=== PATIENT | male | born 1955 | race African-American/Black ===

== ENCOUNTER 2024-06-30 17:50 | Inpatient (IN) | payer MEDICARE, MEDICAID, SELFPAY ==
--- NOTE | ~2024-06-30 | CT_ITS ---
EXAMINATION: CT HEAD WITHOUT CONTRAST CLINICAL INFORMATION: Parkinsonism. COMPARISON: None available. TECHNIQUE: Contiguous axial imaging was performed from the skull base to vertex without intravenous administration of contrast. This CT examination was performed using dose optimization techniques as appropriate, variously including the following: *Automated exposure control *Adjustment of mA and/or kV according to patient size (this includes techniques or standardized protocols for targeted exams where dose is matched to indication/reason for exam; i.e. extremities or head) *Use of iterative reconstruction technique DLP: 765 mGy-cm FINDINGS: There is no evidence of acute intracranial hemorrhage or edematous territorial infarction. Eubanks-white matter differentiation appears preserved. The ventricles and cortical sulci are proportional with mild volume loss. No significant chronic microangiopathy changes. There is no mass effect or midline shift. No acute extra-axial collection. Partially empty sella. No acute soft tissue or osseous abnormalities. 0.5 cm ossified extra-axial lesion seen in relation to the right frontal bone. Mild mucosal thickening involving the right maxillary sinus. The remaining visualized paranasal sinuses and mastoids appear well-aerated. CT/CT head/brain wo IV con IMPRESSION: No acute intracranial pathology. Electronically signed by: Alexis Turk MD 07/23/2024 06:10 PM EDT
[2024-06-30 17:51] VITALS: BP 138/77; PULSE 69; TEMP 36.9; O2SAT 98
--- NOTE | 2024-06-30 18:32 | PC.ADMIT ---
Mr. Farfan arrived via stretcher from [facility] at the doors of at approximately 5:20pm without having stopped at Registration. The were redirected to registration and arrived again, this time at 5:31pm, on a Section 12B. MHC admitting doctor notified.The [employer] ambulance [employer]'s EMT's informed us that Mr. Farfan was not ambulatory and that they had only learned this when they arrived at [facility] to transport him. The EMT's assisted in transferring Mr. Farfan into bed 1 in room 178 where a skin/ safety check was performed. Mostly unremarkable except for several scabbed areas in various state of healing on his right leg, and one noted on his left leg. Admission vitals were as follows: 98.4F-69-138/77, and O2 sat 98%. Per nurse to nurse and other records, Mr. Farfan was reportedly transported by ambulance on 06/15 when his visiting nurse arrived at his home where, he was blasting prayer music and praying to [facility]. The nurse found him, not to be functioning at baseline. He was transported to [facility] where he became violent and at some point (?06/17/24?) was transferred to ICU for physical and chemical restraint. They report he has a history of violence and aggressiveness and has been on 1:1 observation. He was transferred to [facility] which was a med/ surg untit on 06/23 and has been awaiting psych placement since. Diagnostically,he was labeled Altered mental status, confusion and psychosis. Upon arrival, the patient was calm and cooperative but speaks with a distinct stutter and Algerian as his second language with Swahili being his first, and is very difficult to gather much information. He is Adventist and will only eat fish, fruit, vegetables, grains, etc (No chicken, meat or pork). He is non-ambulatory and is incontinent. He was able to communicate that he is not suicidal because he believes and God and God willl take him when it is his time. He has an ex and daughter, but the e-'s phone was out of service and his daughter is not picking up. He has been provided with fluids, a [employer] sandwich, banana and orange which he has not yet finished as, :I eat very slowly. Medically, metabolic encephalopathy due to meds or other; hypothyroid, and GERD. He has not exhibited any aggressive behavior thus far since arriving on the unit. Thr remainder of admission process deferred for next shift.
[2024-06-30 20:00] VITALS: BP 126/68; PULSE 68; RESP 17; TEMP 36.3; O2SAT 98
[2024-06-30] MEDS: Melatonin 3 MG TABLET 6 MG PO (21:06)
[2024-06-30] MEDS: HaloperidoL 5 MG TABLET PO (21:06)
[2024-06-30] MEDS: Benztropine Mesylate 1 MG TABLET PO (21:06)
[2024-06-30] MEDS: Divalproex Sodium 250 MG TABLET.DR PO (21:06)
[2024-06-30] MEDS: traZODone HCL 50 MG TABLET PO (21:14)
[2024-07-01] MEDS: Levothyroxine Sodium 112 MCG TABLET PO (06:12)
[2024-07-01 07:59] VITALS: BP 133/79; PULSE 73; TEMP 36.5; O2SAT 98
[2024-07-01] MEDS: HaloperidoL 5 MG TABLET PO (08:24)
[2024-07-01] MEDS: Benztropine Mesylate 1 MG TABLET PO (08:25)
[2024-07-01] MEDS: Cyanocobalamin (Vitamin B-12) 1,000 MCG TABLET 1000 MCG PO (08:25)
[2024-07-01] MEDS: Famotidine 20 MG TABLET PO (08:25)
[2024-07-01] MEDS: Furosemide 20 MG TABLET PO (08:25)
[2024-07-01] MEDS: Sennosides 8.6 MG TABLET 17.2 MG PO (08:25)
[2024-07-01] MEDS: Divalproex Sodium 250 MG TABLET.DR PO (08:25)
--- NOTE | 2024-07-01 11:31 | P.CONHOSP_ITS ---
History of Present Illness Data of Consult Service Date: 07/01/24 Primary Care Provider: None Physician HPI Reason for consult: Admission H&P Pt is a 68-year-old male with a PMH significant for?hypothyroidism, GERD, and schizoaffective disorder who is admitted to [facility] unit for acute psychosis. Patient initially presented to [facility] ED on 06/15 after being found by his VNA to be altered secondary to likely noncompliance with psychiatric medications. Apparently was blasting prayer music in his home which was cluttered with food all over floor and furniture, and actively delusional claiming he was speaking to [employer]. Hospital course was complicated by transfer to ICU from 06/17-06/23 for combative behavior requiring restraints and Precedex. Was then transferred back to [facility] while awaiting inpatient psych placement. Patient also noted to have abdominal distention without obstruction; initially on full liquid diet starting on 06/24 which was transitioned to low-salt diet on 06/27. Medical consult for admission H&P. ?Patient is seen in his room where he is resting comfortably in bed with covers pulled up covering most of his face. When this interviewer introduces himself, patient states no no no no no no and refuses to be seen, stating he is ?sleeping?. Denies any acute medical complaints. Review of Systems Review of Systems: Denies any acute medical complaints at this time [facility] Medical History (Updated 07/01/24 @ 13:01 by KRYS Hou) GERD (gastroesophageal reflux disease) Hypothyroidism Social History Household Members: None Housing: Apartment Do you presently have visiting nurse or other home services: Yes Patient Tobacco Use Status: Never used Tobacco Use of substances other than those prescribed or required for medical reasons: No Have you been hit, kicked, punched, or otherwise hurt by someone within the past year? If so, by whom?: No Do you feel safe in your current relationship?: No Current Relationship Spiritual Healthcare Practices: hindu Mandaen Healthcare Practices: hindu Cultural Healthcare Practices: no Advance Directives: No Advance Directives Information Provided: No Do you have a plan to hurt others: No Plan Recently lost weight without trying: Yes How much weight loss: Unsure Nutrition Risks: No Nutritional Risk Poor oral hygiene: Yes Meds Allergies Allergy/AdvReac Type Severity Reaction Status Date / Time No Known Allergies Allergy Verified 06/30/24 18:11 Active Medications: Current Medications Acetaminophen (Acetaminophen 325 Mg Tablet) 650 mg PO Q6H PRN PRN Reason: Headache/Pain Mild Scale (1-3) Al Hydroxide/Mg Hydroxide (Magnesium Hydrox/Alum Hydrox 30 Ml Oral.Susp) 30 ml PO Q6H PRN PRN Reason: Heartburn/Nausea Benztropine Mesylate (Benztropine Mesylate 1 Mg Tablet) 1 mg PO BID [facility] Last Admin: 07/01/24 08:25 Dose: 1 mg Cyanocobalamin (Cyanocobalamin (Vitamin B-12) 1,000 Mcg Tablet) 1,000 mcg PO DAILY [facility] Last Admin: 07/01/24 08:25 Dose: 1,000 mcg Divalproex Sodium (Divalproex Sodium 250 Mg Tablet.Dr) 250 mg PO TID [facility] Last Admin: 07/01/24 08:25 Dose: 250 mg Famotidine (Famotidine 20 Mg Tablet) 20 mg PO DAILY [facility] Last Admin: 07/01/24 08:25 Dose: 20 mg Furosemide (Furosemide 20 Mg Tablet) 20 mg PO DAILY [facility] Last Admin: 07/01/24 08:25 Dose: 20 mg Haloperidol (Haloperidol 5 Mg Tablet) 5 mg PO BID [facility] Last Admin: 07/01/24 08:24 Dose: 5 mg Levothyroxine Sodium (Levothyroxine Sodium 112 Mcg Tablet) 112 mcg PO DAILY@0600 [facility] Last Admin: 07/01/24 06:12 Dose: 112 mcg Lorazepam (Lorazepam 1 Mg Tablet) 1 mg PO Q4H PRN PRN Reason: anxiety/restlessness Magnesium Hydroxide (Milk Of Magnesia 30 Ml Oral.Susp) 30 ml PO DAILY PRN PRN Reason: Constipation Melatonin (Melatonin 3 Mg Tablet) 6 mg PO BEDTIME [facility] Last Admin: 06/30/24 21:06 Dose: 6 mg Olanzapine (Olanzapine Odt 10 Mg Tab.Rapdis) 10 mg TRANSLINGU BID PRN PRN Reason: Psychosis Senna (Sennosides 8.6 Mg Tablet) 17.2 mg PO DAILY [facility] Last Admin: 07/01/24 08:25 Dose: 17.2 mg Trazodone HCl (Trazodone Hcl 50 Mg Tablet) 50 mg PO BEDTIME MRX1 PRN PRN Reason: Insomnia Last Admin: 06/30/24 21:14 Dose: 50 mg Home Medications ?Medication ?Instructions ?Recorded ?Confirmed ?Last Taken ?Type benztropine 1 mg PO 2XD 06/30/24 06/30/24 Unknown History cyanocobalamin (vitamin B-12) 1,000 mcg PO 1XD 06/30/24 06/30/24 Unknown History divalproex 250 mg tablet,delayed 250 mg PO 3XD 06/30/24 06/30/24 Unknown History release famotidine 20 mg PO 1XD 06/30/24 06/30/24 Unknown History furosemide 20 mg PO 1XD 06/30/24 06/30/24 Unknown History levothyroxine 112 mcg PO DAILY@0630 06/30/24 06/30/24 Unknown History melatonin 6 mg PO BEDTIME 06/30/24 06/30/24 Unknown History quetiapine 400 mg PO BEDTIME 06/30/24 06/30/24 Unknown History risperidone 0.5 mg PO BEDTIME 06/30/24 06/30/24 Unknown History senna 17.2 mg PO 1XD 06/30/24 06/30/24 Unknown History Physical Exam Vital Signs and Narrative: Vital Signs: Last Vital Signs Temp 97.7 F 07/01/24 07:59 Pulse 73 07/01/24 07:59 Resp 17 06/30/24 20:00 BP 133/79 07/01/24 07:59 Pulse Ox 98 07/01/24 07:59 O2 Del Method Room Air 07/01/24 07:59 Patient declines physical examination Patient noted to speak with stutter and have at least right upper extremity tremor Assessment and Plan (1) Medical clearance for psychiatric admission: Status: Acute Plan Pt is a 68-year-old male with a PMH significant for?hypothyroidism, GERD, and schizoaffective disorder who is admitted to [facility] unit for acute psychosis. Patient initially presented to [facility] ED on 06/15 after being found by his VNA to be altered secondary to likely noncompliance with psychiatric medications. Apparently was blasting prayer music in his home which was cluttered with food all over floor and furniture, and actively delusional claiming he was speaking to [place]. Hospital course was complicated by transfer to ICU from 06/17-06/23 for combative behavior requiring restraints and Precedex. Was then transferred back to [facility] while awaiting inpatient psych placement. Medical consult for admission H&P. Mood disorder Plan as per Psychiatry Hypothyroidism Continue levothyroxine GERD Continue famotidine Thank you for allowing us to participate in the care of this patient. Signing off at this time. Please re-consult if any acute complaints or issues arise.
--- NOTE | 2024-07-01 12:16 | P.HPPS_ITS ---
HPI Date of Service: 07/01/24 Chief Complaint: Schizoaffective disorder, unspecified Sources of Information: patient interviewed, chart reviewed and crisis/core team assessment reviewed HPI Subjective Notes: [place] Warning and Section 12B Narrative: The patient is a 68-year-old [place] male, , father of adult children, with a past history of schizoaffective disorder bipolar type who was initially brought to another hospital out of our catchment area since he was found in his apartment unable to take care of himself, extremely filthy with loud music, disheveled and disorganized. She was rushed to the emergency room and transf erred to a regular unit since he was agitated and needed soft restraints. He was seen by Psychiatry over there started on Haldol and transferring to this facility after [facility] got involved and accelerate his admission. On admission the patient was pleasant, cooperative, internally preoccupied, perseverative with speech impairment but he was able to make his needs known. He reported that he is mostly him and he does not drink or smoke or use any drugs, he was withdrawn but easily redirectable. The patient was unable to provide any further information he stated that he is not hearing voices at this moment but he looked internally preoccupied. We continue with his Haldol as prescribed and will try to gather more collateral information. At the moment of the admission we were unable to get more collateral information, we do not know prior trials of medications but he was able to state that he was admitted into the hospital for psychiatric reasons before. He remains on one-to-one observation Past Psychiatric History: The patient is a very poor historian but apparently he has an extensive psychiatric history of several prior admissions into the [facility] and [facility] involvement. So far we do not have guardians order or treatment over objection in the community. Medical Evaluation Reviewed: Yes [facility] Medical History GERD (gastroesophageal reflux disease) Hypothyroidism Family History: Denies Social History: Unknown, the patient was born and raised in [place] [facility] [place], he is fluent in Albanian. He was but and he has adult children that are not involved Substance History: Denies Trauma History: Unknown Diagnostics Vital Signs (24Hr): Vital Signs - 24 hr 06/30/24 17:51 06/30/24 20:00 07/01/24 07:59 Temperature 98.4 F 97.4 F 97.7 F Pulse Rate 69 68 73 Respiratory Rate 17 Blood Pressure 138/77 126/68 133/79 Pulse Oximetry 98 98 98 Oxygen Delivery Method Room Air Room Air Room Air Meds/Allergies Meds Home Medications ?Medication ?Instructions ?Recorded ?Confirmed ?Type benztropine 1 mg PO 2XD 06/30/24 06/30/24 History cyanocobalamin (vitamin B-12) 1,000 mcg PO 1XD 06/30/24 06/30/24 History divalproex 250 mg tablet,delayed 250 mg PO 3XD 06/30/24 06/30/24 History release famotidine 20 mg PO 1XD 06/30/24 06/30/24 History furosemide 20 mg PO 1XD 06/30/24 06/30/24 History levothyroxine 112 mcg PO DAILY@0630 06/30/24 06/30/24 History melatonin 6 mg PO BEDTIME 06/30/24 06/30/24 History quetiapine 400 mg PO BEDTIME 06/30/24 06/30/24 History risperidone 0.5 mg PO BEDTIME 06/30/24 06/30/24 History senna 17.2 mg PO 1XD 06/30/24 06/30/24 History Allergies Allergies Allergy/AdvReac Type Severity Reaction Status Date / Time No Known Allergies Allergy Verified 06/30/24 18:11 Mental Status Exam Mental Status Exam Patient Appearance: Appropriate Patient Orientation: Person and Situation Level of Consciousness: Awake and Appropriate Patient Behavior: Guarded and Passive Mood Description: Withdrawn Affect Description: Constricted Patient Cognition Impaired: Yes Ability to Follow Directions: Good Speech Pattern: Clear Hallucinations: Auditory Delusions: Paranoid Ideation and Ideas of Reference Thought Process: Distracted and Slowed Thinking Thought Content: positive for [place] and positive for Poverty of Content Judgement: Poor Assessment & Plan Assessment & Plan (1) Schizoaffective disorder: Status: Acute Code(s): F25.9 - Schizoaffective disorder, unspecified Plan The patient is an elderly [place]ud[place] male with a past history of schizoaffective disorder bipolar type who was brought from the community due to exacerbation of psychosis and inability to take care of himself. Apparently he was living in a filthy apartment with loud music very disruptive. He was initially admitted to Medicine and later on transferring to this facility for psychiatric stabilization. Plan 1. Gather collateral information. 2. Continue with Haldol as prescribed. 3. Continue with medical workout. 4. Reassessment with results. 5. On one-to-one observation Patient educated on: diagnosis Reason for continued inpatient stay Substantial Risk for: inability to function, rapid decompensation and med/psych decompensation Statement Statement: I have reviewed the history and physical and performed a pertinent examination on my patient. No changes have occurred unless specified. If the History and Physical was not performed prior to admission, the Hospitalist's service will be consulted for completing the admission physical. Time Spent With Patient Time: Total time managing care of this patient today __45__ minutes.
--- NOTE | 2024-07-01 15:02 | MHC.CLN ---
NUTRITION ALERTED BY NURSING OF [employer] PREFERENCES. VISITED WITH PATIENT IN HIS ROOM WITH [facility]. 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 ASKED SPECIFICALLY ABOUT FOOD CERTIFIED HALAL. DID NOT INDICATE THAT PREFERENCE. DOES NOT EAT CHICKEN, MEAT, PORK. STATED THAT DOES NOT WANT FISH. [facility]BARO WILL TRY TO COMPLETE DINING MENU WITH PATIENT.
[2024-07-01 19:38] VITALS: BP 126/67; PULSE 64; RESP 18; TEMP 36.4; O2SAT 98
[2024-07-02] MEDS: traZODone HCL 50 MG TABLET PO (02:46)
[2024-07-02] MEDS: Levothyroxine Sodium 112 MCG TABLET PO (06:06)
[2024-07-02 08:00] VITALS: BP 140/71; PULSE 69; TEMP 37.6; O2SAT 98
[2024-07-02] MEDS: Furosemide 20 MG TABLET PO (08:27)
[2024-07-02] MEDS: Sennosides 8.6 MG TABLET 17.2 MG PO (08:27)
[2024-07-02] MEDS: Famotidine 20 MG TABLET PO (08:28)
[2024-07-02] MEDS: Divalproex Sodium 250 MG TABLET.DR PO ×3 (08:28→20:13)
[2024-07-02] MEDS: Benztropine Mesylate 1 MG TABLET PO ×2 (08:28→20:13)
[2024-07-02] MEDS: Cyanocobalamin (Vitamin B-12) 1,000 MCG TABLET 1000 MCG PO (08:28)
[2024-07-02] MEDS: HaloperidoL 5 MG TABLET PO ×2 (08:28→20:13)
--- NOTE | 2024-07-02 15:29 | HO.PSYCHPN ---
Subjective Subjective Date of Service: 07/02/24 Reason For Visit: Schizoaffective disorder, unspecified Subjective Notes: Section 12B Interim History: The nursing staff reported the patient had been compliant with treatment, he stayed in his room and he was withdrawn he ate 100% of his breakfast. He had been easily redirectable but a little difficult to understand due to his speech impairment. He refused medications at night. On interview the patient reports that he is feeling much better that he went out to have fresh air. We are going to try to gather more collateral information since the patient is a very poor historian. Mental Status Exam Mental Status Exam Patient Appearance: Appropriate Patient Orientation: Person and Situation Level of Consciousness: Awake and Appropriate Patient Behavior: Guarded and Passive Mood Description: Withdrawn Affect Description: Constricted Patient Cognition Impaired: Yes Ability to Follow Directions: Good Speech Pattern: Clear Hallucinations: None Delusions: Ideas of Reference Thought Process: Distracted and Slowed Thinking Thought Content: positive for [place] and positive for Poverty of Content Judgement: Poor Diagnostics Vital Signs (24Hr): Vital Signs - 24 hr 07/01/24 19:38 07/02/24 08:00 Temperature 97.6 F 99.7 F Pulse Rate 64 69 Respiratory Rate 18 Blood Pressure 126/67 140/71 H Pulse Oximetry 98 98 Oxygen Delivery Method Room Air Room Air Medications Medications Current Medications Acetaminophen (Acetaminophen 325 Mg Tablet) 650 mg PO Q6H PRN PRN Reason: Headache/Pain Mild Scale (1-3) Al Hydroxide/Mg Hydroxide (Magnesium Hydrox/Alum Hydrox 30 Ml Oral.Susp) 30 ml PO Q6H PRN PRN Reason: Heartburn/Nausea Benztropine Mesylate (Benztropine Mesylate 1 Mg Tablet) 1 mg PO BID [facility] Last Admin: 07/02/24 08:28 Dose: 1 mg Cyanocobalamin (Cyanocobalamin (Vitamin B-12) 1,000 Mcg Tablet) 1,000 mcg PO DAILY [facility] Last Admin: 07/02/24 08:28 Dose: 1,000 mcg Divalproex Sodium (Divalproex Sodium 250 Mg Tablet.) 250 mg PO TID [facility] Last Admin: 07/02/24 08:28 Dose: 250 mg Famotidine (Famotidine 20 Mg Tablet) 20 mg PO DAILY [facility] Last Admin: 07/02/24 08:28 Dose: 20 mg Furosemide (Furosemide 20 Mg Tablet) 20 mg PO DAILY [facility] Last Admin: 07/02/24 08:27 Dose: 20 mg Haloperidol (Haloperidol 5 Mg Tablet) 5 mg PO BID [facility] Last Admin: 07/02/24 08:28 Dose: 5 mg Levothyroxine Sodium (Levothyroxine Sodium 112 Mcg Tablet) 112 mcg PO DAILY@0600 [facility] Last Admin: 07/02/24 06:06 Dose: 112 mcg Lorazepam (Lorazepam 1 Mg Tablet) 1 mg PO Q4H PRN PRN Reason: anxiety/restlessness Magnesium Hydroxide (Milk Of Magnesia 30 Ml Oral.Susp) 30 ml PO DAILY PRN PRN Reason: Constipation Melatonin (Melatonin 3 Mg Tablet) 6 mg PO BEDTIME [facility] Last Admin: 07/01/24 20:19 Dose: Not Given Olanzapine (Olanzapine Odt 10 Mg Tab.Rapdis) 10 mg TRANSLINGU BID PRN PRN Reason: Psychosis Senna (Sennosides 8.6 Mg Tablet) 17.2 mg PO DAILY [facility] Last Admin: 07/02/24 08:27 Dose: 17.2 mg Trazodone HCl (Trazodone Hcl 50 Mg Tablet) 50 mg PO BEDTIME MRX1 PRN PRN Reason: Insomnia Last Admin: 07/02/24 02:46 Dose: 50 mg Allergies Allergies Allergy/AdvReac Type Severity Reaction Status Date / Time No Known Allergies Allergy Verified 06/30/24 18:11 Assessment & Plan Assessment & Plan (1) Schizoaffective disorder: Status: Acute Code(s): F25.9 - Schizoaffective disorder, unspecified Plan The patient is an elderly Macanese male with a past history of schizoaffective disorder bipolar type who was brought from the community due to exacerbation of psychosis and inability to take care of himself. Apparently he was living in a filthy apartment with loud music very disruptive. He was initially admitted to Medicine and later on transferring to this facility for psychiatric stabilization. Plan 1. Gather collateral information. 2. Continue with Haldol as prescribed. 3. Continue with medical workout. 4. Reassessment with results. 5. On one-to-one observation. On July 02 we change the observation to 5 minute checks. 6. Physical therapy assessment for gait. Reason for continued inpatient stay Substantial Risk for: inability to function, rapid decompensation and med/psych decompensation Time Spent With Patient Time: Total time managing care of this patient today __20__ minutes.
[2024-07-02 20:00] VITALS: BP 141/90; PULSE 89; RESP 18; TEMP 36.7; O2SAT 98
[2024-07-02] MEDS: Melatonin 3 MG TABLET 6 MG PO (20:13)
[2024-07-03] MEDS: Levothyroxine Sodium 112 MCG TABLET PO (06:11)
[2024-07-03 08:00] VITALS: BP 150/91; PULSE 100; RESP 18; TEMP 36.4; O2SAT 99
[2024-07-03] MEDS: Sennosides 8.6 MG TABLET 17.2 MG PO (08:29)
[2024-07-03] MEDS: Divalproex Sodium 250 MG TABLET.DR PO ×3 (08:29→20:30)
[2024-07-03] MEDS: HaloperidoL 5 MG TABLET PO ×2 (08:29→20:30)
[2024-07-03 08:30] VITALS: BP 150/91
[2024-07-03] MEDS: Furosemide 20 MG TABLET PO (08:30)
[2024-07-03] MEDS: Famotidine 20 MG TABLET PO (08:30)
[2024-07-03] MEDS: Cyanocobalamin (Vitamin B-12) 1,000 MCG TABLET 1000 MCG PO (08:30)
[2024-07-03] MEDS: Benztropine Mesylate 1 MG TABLET PO ×2 (08:30→20:30)
--- NOTE | 2024-07-03 09:58 | HO.PSYCHPN ---
Subjective Subjective Date of Service: 07/03/24 Reason For Visit: Schizoaffective disorder, unspecified Subjective Notes: Conditional Voluntary Interim History: The nursing staff reported the patient had been pleasant, relaxed he walked with assistance he was seen by PT. He was cheerful no issues. She slept poorly. The occupational therapist agreed with the physical therapist about short-term rehab and he was in agreement with that. Today sign CV and he is willing to go to short acute rehab. He denies auditory hallucinations or paranoia Mental Status Exam Mental Status Exam Patient Appearance: Well Grooomed and Appropriate Patient Orientation: Person and Situation Level of Consciousness: Awake and Appropriate Patient Behavior: Guarded and Passive Mood Description: Withdrawn Affect Description: Constricted Patient Cognition Impaired: Yes Ability to Follow Directions: Good Speech Pattern: Clear Hallucinations: None Delusions: Not Present Thought Process: Distracted and Slowed Thinking Thought Content: positive for [place] and positive for Poverty of Content Judgement: Fair Diagnostics Vital Signs (24Hr): Vital Signs - 24 hr 07/02/24 20:00 07/03/24 08:00 07/03/24 08:30 Temperature 98.0 F 97.6 F Pulse Rate 89 100 Respiratory Rate 18 18 Blood Pressure 141/90 H 150/91 H 150/91 H Pulse Oximetry 98 99 Oxygen Delivery Method Room Air Room Air Medications Medications Current Medications Acetaminophen (Acetaminophen 325 Mg Tablet) 650 mg PO Q6H PRN PRN Reason: Headache/Pain Mild Scale (1-3) Al Hydroxide/Mg Hydroxide (Magnesium Hydrox/Alum Hydrox 30 Ml Oral.Susp) 30 ml PO Q6H PRN PRN Reason: Heartburn/Nausea Benztropine Mesylate (Benztropine Mesylate 1 Mg Tablet) 1 mg PO BID [facility] Last Admin: 07/03/24 08:30 Dose: 1 mg Cyanocobalamin (Cyanocobalamin (Vitamin B-12) 1,000 Mcg Tablet) 1,000 mcg PO DAILY [facility] Last Admin: 07/03/24 08:30 Dose: 1,000 mcg Divalproex Sodium (Divalproex Sodium 250 Mg Tablet.) 250 mg PO TID [facility] Last Admin: 07/03/24 08:29 Dose: 250 mg Famotidine (Famotidine 20 Mg Tablet) 20 mg PO DAILY [facility] Last Admin: 07/03/24 08:30 Dose: 20 mg Furosemide (Furosemide 20 Mg Tablet) 20 mg PO DAILY [facility] Last Admin: 07/03/24 08:30 Dose: 20 mg Haloperidol (Haloperidol 5 Mg Tablet) 5 mg PO BID [facility] Last Admin: 07/03/24 08:29 Dose: 5 mg Levothyroxine Sodium (Levothyroxine Sodium 112 Mcg Tablet) 112 mcg PO DAILY@0600 [facility] Last Admin: 07/03/24 06:11 Dose: 112 mcg Lorazepam (Lorazepam 1 Mg Tablet) 1 mg PO Q4H PRN PRN Reason: anxiety/restlessness Magnesium Hydroxide (Milk Of Magnesia 30 Ml Oral.Susp) 30 ml PO DAILY PRN PRN Reason: Constipation Melatonin (Melatonin 3 Mg Tablet) 6 mg PO BEDTIME [facility] Last Admin: 07/02/24 20:13 Dose: 6 mg Olanzapine (Olanzapine Odt 10 Mg Tab.Rapdis) 10 mg TRANSLINGU BID PRN PRN Reason: Psychosis Senna (Sennosides 8.6 Mg Tablet) 17.2 mg PO DAILY [facility] Last Admin: 07/03/24 08:29 Dose: 17.2 mg Trazodone HCl (Trazodone Hcl 50 Mg Tablet) 50 mg PO BEDTIME MRX1 PRN PRN Reason: Insomnia Last Admin: 07/02/24 02:46 Dose: 50 mg Allergies Allergies Allergy/AdvReac Type Severity Reaction Status Date / Time No Known Allergies Allergy Verified 06/30/24 18:11 Assessment & Plan Assessment & Plan (1) Schizoaffective disorder: Status: Acute Code(s): F25.9 - Schizoaffective disorder, unspecified Plan The patient is an elderly Bangladeshi male with a past history of schizoaffective disorder bipolar type who was brought from the community due to exacerbation of psychosis and inability to take care of himself. Apparently he was living in a filthy apartment with loud music very disruptive. He was initially admitted to Medicine and later on transferring to this facility for psychiatric stabilization. Plan 1. Gather collateral information. 2. Continue with Haldol as prescribed. 3. Continue with medical workout. 4. Reassessment with results. 5. On one-to-one observation. On July 02 we change the observation to 5 minute checks. 6. Physical therapy assessment for gait. PT suggested subacute rehab as discharge planning. Reason for continued inpatient stay Substantial Risk for: inability to function, rapid decompensation and med/psych decompensation Time Spent With Patient Time: Total time managing care of this patient today __20__ minutes.
[2024-07-03 14:46] VITALS: BP 150/91
[2024-07-03 20:00] VITALS: BP 132/80; PULSE 95; RESP 18; TEMP 36.6; O2SAT 98
[2024-07-03] MEDS: Melatonin 3 MG TABLET 6 MG PO (20:30)
[2024-07-03] MEDS: traZODone HCL 50 MG TABLET PO (20:30)
[2024-07-04] MEDS: Levothyroxine Sodium 112 MCG TABLET PO (06:02)
[2024-07-04 08:00] VITALS: BP 124/73; PULSE 88; RESP 18; TEMP 36.5; O2SAT 98
[2024-07-04 08:39] VITALS: BP 124/73
[2024-07-04] MEDS: Furosemide 20 MG TABLET PO (08:39)
[2024-07-04] MEDS: Benztropine Mesylate 1 MG TABLET PO ×2 (08:40→21:34)
[2024-07-04] MEDS: Cyanocobalamin (Vitamin B-12) 1,000 MCG TABLET 1000 MCG PO (08:40)
[2024-07-04] MEDS: Famotidine 20 MG TABLET PO (08:40)
[2024-07-04] MEDS: Divalproex Sodium 250 MG TABLET.DR PO ×3 (08:40→21:34)
[2024-07-04] MEDS: HaloperidoL 5 MG TABLET PO ×2 (08:40→21:34)
[2024-07-04] MEDS: Sennosides 8.6 MG TABLET 17.2 MG PO (08:40)
--- NOTE | 2024-07-04 14:07 | HO.PSYCHPN ---
Subjective Subjective Date of Service: 07/04/24 Reason For Visit: Schizoaffective disorder, unspecified Subjective Notes: Conditional Voluntary Medical Problems Affecting Mental Status: Yes (tremor? med s/e , deconditioned) Interim History: 68 yo reports he is from [facility]- tells me came here in 2005 and has been hospitalized numerous times- for psychiatric, also in [facility] he had some as well - Most recent was BI before here- where they reportedly kept him in bed or 2 weeks- hoping to get some PT- Denies current si -prior to admission was singingloudly and delusional - better control this time- says he was screaming at 3 am when he vomited- Discussed pt's stutter and tremor with him-he thinks might be ed related - Medication Compliance: Yes Side effects from medications: Yes (? tremor/TD) Attending Groups: No Review of Systems unclear- anything acute other than deconditioned Medical Review of Systems: unchanged Mental Status Exam Mental Status Exam Patient Appearance: Disheveled Patient Orientation: Person, Place and Situation Level of Consciousness: Awake Patient Behavior: Dependent, Cooperative and Good Eye Contact Affect Description: Blunted Ability to Follow Directions: Fair Speech Pattern: Stuttering Thought Process: Distracted and Slowed Thinking Thought Content: positive for Disorganized (? hard to tell) Depressive Symptoms: Insomnia and Muscle Tension Judgement: Poor Diagnostics Vital Signs (24Hr): Vital Signs - 24 hr 07/03/24 14:46 07/03/24 20:00 07/04/24 08:00 Temperature 97.9 F 97.7 F Pulse Rate 95 88 Respiratory Rate 18 18 Blood Pressure 150/91 H 132/80 124/73 Pulse Oximetry 98 98 Oxygen Delivery Method Room Air Room Air 07/04/24 08:39 Temperature Pulse Rate Respiratory Rate Blood Pressure 124/73 Pulse Oximetry Oxygen Delivery Method Medications Medications Current Medications Acetaminophen (Acetaminophen 325 Mg Tablet) 650 mg PO Q6H PRN PRN Reason: Headache/Pain Mild Scale (1-3) Al Hydroxide/Mg Hydroxide (Magnesium Hydrox/Alum Hydrox 30 Ml Oral.Susp) 30 ml PO Q6H PRN PRN Reason: Heartburn/Nausea Benztropine Mesylate (Benztropine Mesylate 1 Mg Tablet) 1 mg PO BID [facility] Last Admin: 07/04/24 08:40 Dose: 1 mg Cyanocobalamin (Cyanocobalamin (Vitamin B-12) 1,000 Mcg Tablet) 1,000 mcg PO DAILY [facility] Last Admin: 07/04/24 08:40 Dose: 1,000 mcg Divalproex Sodium (Divalproex Sodium 250 Mg Tablet.Dr) 250 mg PO TID [facility] Last Admin: 07/04/24 08:40 Dose: 250 mg Famotidine (Famotidine 20 Mg Tablet) 20 mg PO DAILY [facility] Last Admin: 07/04/24 08:40 Dose: 20 mg Furosemide (Furosemide 20 Mg Tablet) 20 mg PO DAILY [facility] Last Admin: 07/04/24 08:39 Dose: 20 mg Haloperidol (Haloperidol 5 Mg Tablet) 5 mg PO BID [facility] Last Admin: 07/04/24 08:40 Dose: 5 mg Levothyroxine Sodium (Levothyroxine Sodium 112 Mcg Tablet) 112 mcg PO DAILY@0600 [facility] Last Admin: 07/04/24 06:02 Dose: 112 mcg Lorazepam (Lorazepam 1 Mg Tablet) 1 mg PO Q4H PRN PRN Reason: anxiety/restlessness Magnesium Hydroxide (Milk Of Magnesia 30 Ml Oral.Susp) 30 ml PO DAILY PRN PRN Reason: Constipation Melatonin (Melatonin 3 Mg Tablet) 6 mg PO BEDTIME [facility] Last Admin: 07/03/24 20:30 Dose: 6 mg Olanzapine (Olanzapine Odt 10 Mg Tab.Rapdis) 10 mg TRANSLINGU BID PRN PRN Reason: Psychosis Senna (Sennosides 8.6 Mg Tablet) 17.2 mg PO DAILY [facility] Last Admin: 07/04/24 08:40 Dose: 17.2 mg Trazodone HCl (Trazodone Hcl 50 Mg Tablet) 50 mg PO BEDTIME MRX1 PRN PRN Reason: Insomnia Last Admin: 07/03/24 20:30 Dose: 50 mg Allergies Allergies Allergy/AdvReac Type Severity Reaction Status Date / Time No Known Allergies Allergy Verified 06/30/24 18:11 Assessment & Plan Assessment & Plan (1) Schizoaffective disorder: Status: Acute Code(s): F25.9 - Schizoaffective disorder, unspecified Plan The patient is an elderly Belgian male with a past history of schizoaffective disorder bipolar type who was brought from the community due to exacerbation of psychosis and inability to take care of himself. Apparently he was living in a filthy apartment with loud music very disruptive. He was initially admitted to Medicine and later on transferring to this facility for psychiatric stabilization. Plan 1. Gather collateral information. 2. Continue with Haldol as prescribed. 3. Continue with medical workout. 4. Reassessment with results. 5. On one-to-one observation. On July 02 we change the observation to 5 minute checks. 6. Physical therapy assessment for gait. PT suggested subacute rehab as discharge planning. Patient educated on: medication risk/benefits and therapeutic strategies Informed Consent: understands Reason for continued inpatient stay Substantial Risk for: inability to function, rapid decompensation and med/psych decompensation Time Spent With Patient Time: Total time managing care of this patient today ____ minutes.
[2024-07-04 20:00] VITALS: BP 120/85; PULSE 75; RESP 18; TEMP 36.6; O2SAT 98
[2024-07-04] MEDS: Melatonin 3 MG TABLET 6 MG PO (21:34)
[2024-07-04] MEDS: LORazepam 1 MG TABLET PO (21:34)
[2024-07-05] MEDS: Levothyroxine Sodium 112 MCG TABLET PO (06:00)
[2024-07-05 08:20] VITALS: BP 138/84; PULSE 115; RESP 22; TEMP 36.6; O2SAT 98
[2024-07-05] MEDS: Famotidine 20 MG TABLET PO (08:22)
[2024-07-05] MEDS: Divalproex Sodium 250 MG TABLET.DR PO ×3 (08:22→20:28)
[2024-07-05] MEDS: Sennosides 8.6 MG TABLET 17.2 MG PO (08:23)
[2024-07-05] MEDS: HaloperidoL 5 MG TABLET PO ×2 (08:23→20:28)
[2024-07-05] MEDS: Benztropine Mesylate 1 MG TABLET PO ×2 (08:23→20:28)
[2024-07-05] MEDS: Furosemide 20 MG TABLET PO (08:23)
[2024-07-05] MEDS: Cyanocobalamin (Vitamin B-12) 1,000 MCG TABLET 1000 MCG PO (08:23)
--- NOTE | 2024-07-05 14:19 | P.PNPSI_ITS ---
Subjective Subjective Date of Service: 07/05/24 Reason For Visit: Schizoaffective disorder, unspecified Subjective Notes: Conditional Voluntary Healthcare Proxy: No Guardianship: No Medical Problems Affecting Mental Status: Yes (deconditioning) Interim History: 68 yo from [facility]- who is sitting singing loudly, possibly purposefully - As he stopped when provider engaged him instead of other patient in interview. Pt says he is doing well - no s/e of medication, denies si/hi clearly ongoing odd/bizarre behavior- Nursing reported patient thought he could stare directly at sun due to color of his eyes. Medication Compliance: Yes Side effects from medications: No Attending Groups: Intermittent Review of Systems Acute medical concerns: No Medical Review of Systems: unchanged Mental Status Exam Mental Status Exam Patient Appearance: Unkempt Patient Orientation: Person, Place, Time and Situation Level of Consciousness: Awake and Alert Patient Behavior: Cooperative Behavior Comments: singing loudly in common area, may need redirection to personal room for this Mood Description: Expansive Affect Description: Expansive Ability to Follow Directions: Fair Speech Pattern: Mumbled and Stuttering Hallucinations: None Delusions: Bizarre Thought Process: Distracted Thought Content: positive for Disorganized (?) Judgement: Fair Diagnostics Vital Signs (24Hr): Vital Signs - 24 hr 07/04/24 20:00 07/05/24 08:20 Temperature 97.9 F 97.9 F Pulse Rate 75 115 H Respiratory Rate 18 22 H Blood Pressure 120/85 138/84 Pulse Oximetry 98 98 Oxygen Delivery Method Room Air Room Air Medications Medications Current Medications Acetaminophen (Acetaminophen 325 Mg Tablet) 650 mg PO Q6H PRN PRN Reason: Headache/Pain Mild Scale (1-3) Al Hydroxide/Mg Hydroxide (Magnesium Hydrox/Alum Hydrox 30 Ml Oral.Susp) 30 ml PO Q6H PRN PRN Reason: Heartburn/Nausea Benztropine Mesylate (Benztropine Mesylate 1 Mg Tablet) 1 mg PO BID [facility] Last Admin: 07/05/24 08:23 Dose: 1 mg Cyanocobalamin (Cyanocobalamin (Vitamin B-12) 1,000 Mcg Tablet) 1,000 mcg PO DAILY [facility] Last Admin: 07/05/24 08:23 Dose: 1,000 mcg Divalproex Sodium (Divalproex Sodium 250 Mg Tablet.) 250 mg PO TID [facility] Last Admin: 07/05/24 08:22 Dose: 250 mg Famotidine (Famotidine 20 Mg Tablet) 20 mg PO DAILY [facility] Last Admin: 07/05/24 08:22 Dose: 20 mg Furosemide (Furosemide 20 Mg Tablet) 20 mg PO DAILY [facility] Last Admin: 07/05/24 08:23 Dose: 20 mg Haloperidol (Haloperidol 5 Mg Tablet) 5 mg PO BID [facility] Last Admin: 07/05/24 08:23 Dose: 5 mg Levothyroxine Sodium (Levothyroxine Sodium 112 Mcg Tablet) 112 mcg PO DAILY@0600 [facility] Last Admin: 07/05/24 06:00 Dose: 112 mcg Lorazepam (Lorazepam 1 Mg Tablet) 1 mg PO Q6H PRN PRN Reason: anxiety/restlessness Last Admin: 07/04/24 21:34 Dose: 1 mg Magnesium Hydroxide (Milk Of Magnesia 30 Ml Oral.Susp) 30 ml PO DAILY PRN PRN Reason: Constipation Melatonin (Melatonin 3 Mg Tablet) 6 mg PO BEDTIME [facility] Last Admin: 07/04/24 21:34 Dose: 6 mg Olanzapine (Olanzapine Odt 10 Mg Tab.Rapdis) 10 mg TRANSLINGU BID PRN PRN Reason: Psychosis Ondansetron HCl (Ondansetron Odt 4 Mg Tab.Rapdis) 4 mg TRANSLINGU Q8H PRN PRN Reason: Nausea and Vomiting Senna (Sennosides 8.6 Mg Tablet) 17.2 mg PO DAILY [facility] Last Admin: 07/05/24 08:23 Dose: 17.2 mg Trazodone HCl (Trazodone Hcl 50 Mg Tablet) 50 mg PO BEDTIME MRX1 PRN PRN Reason: Insomnia Last Admin: 07/03/24 20:30 Dose: 50 mg Allergies Allergies Allergy/AdvReac Type Severity Reaction Status Date / Time No Known Allergies Allergy Verified 06/30/24 18:11 Assessment & Plan Assessment & Plan (1) Schizoaffective disorder: Status: Acute Code(s): F25.9 - Schizoaffective disorder, unspecified Plan The patient is an elderly British male with a past history of schizoaffective disorder bipolar type who was brought from the community due to exacerbation of psychosis and inability to take care of himself. Apparently he was living in a filthy apartment with loud music very disruptive. He was initially admitted to Medicine and later on transferring to this facility for psychiatric stabilization. Plan 1. Gather collateral information. 2. Continue with Haldol as prescribed. 3. Continue with medical workout. 4. Reassessment with results. 5. On one-to-one observation. On July 02 we change the observation to 5 minute checks. 6. Physical therapy assessment for gait. PT suggested subacute rehab as discharge planning. Patient educated on: medication risk/benefits Informed Consent: understands Reason for continued inpatient stay Substantial Risk for: rapid decompensation and med/psych decompensation Time Spent With Patient Time: Total time managing care of this patient today ____ minutes.
[2024-07-05 19:54] VITALS: BP 152/96; PULSE 103; RESP 18; TEMP 36.7; O2SAT 97
[2024-07-05] MEDS: LORazepam 1 MG TABLET PO (20:28)
[2024-07-05] MEDS: Melatonin 3 MG TABLET 6 MG PO (20:28)
[2024-07-05] MEDS: traZODone HCL 50 MG TABLET PO (20:28)
[2024-07-06] MEDS: Levothyroxine Sodium 112 MCG TABLET PO (05:54)
[2024-07-06 08:00] VITALS: BP 121/60; PULSE 97; RESP 16; TEMP 36.6; O2SAT 97
[2024-07-06] MEDS: Cyanocobalamin (Vitamin B-12) 1,000 MCG TABLET 1000 MCG PO (08:55)
[2024-07-06 08:56] VITALS: BP 114/70
[2024-07-06] MEDS: HaloperidoL 5 MG TABLET PO ×2 (08:56→20:16)
[2024-07-06] MEDS: Sennosides 8.6 MG TABLET 17.2 MG PO (08:56)
[2024-07-06] MEDS: Furosemide 20 MG TABLET PO (08:56)
[2024-07-06] MEDS: Benztropine Mesylate 1 MG TABLET PO ×2 (08:58→20:16)
[2024-07-06] MEDS: Divalproex Sodium 250 MG TABLET.DR PO ×3 (08:58→20:16)
[2024-07-06] MEDS: Famotidine 20 MG TABLET PO (08:58)
--- NOTE | 2024-07-06 12:01 | P.PNPSI_ITS ---
Subjective Subjective Date of Service: 07/06/24 Reason For Visit: Schizoaffective disorder, unspecified Subjective Notes: Conditional Voluntary Interim History: The nursing staff reported the patient had been pleasant cooperative, nonsensical at times but easily redirectable. Vomited yesterday. He slept 8 hours. On interview the patient denies new symptoms pleasant cooperative with an speech impairment. He looks that he has tarditive dyskinesia. Mental Status Exam Mental Status Exam Patient Appearance: Appropriate Patient Orientation: Person and Situation Level of Consciousness: Awake and Appropriate Patient Behavior: Guarded and Passive Mood Description: Withdrawn Affect Description: Constricted Patient Cognition Impaired: Yes Ability to Follow Directions: Good Speech Pattern: Clear Hallucinations: None Delusions: Not Present Thought Process: Distracted and Slowed Thinking Thought Content: positive for [place] and positive for Poverty of Content Judgement: Poor Diagnostics Vital Signs (24Hr): Vital Signs - 24 hr 07/05/24 19:54 07/06/24 08:00 07/06/24 08:56 Temperature 98.0 F 97.9 F Pulse Rate 103 H 97 Respiratory Rate 18 16 Blood Pressure 152/96 H 121/60 114/70 Pulse Oximetry 97 97 Oxygen Delivery Method Room Air Room Air Medications Medications Current Medications Acetaminophen (Acetaminophen 325 Mg Tablet) 650 mg PO Q6H PRN PRN Reason: Headache/Pain Mild Scale (1-3) Al Hydroxide/Mg Hydroxide (Magnesium Hydrox/Alum Hydrox 30 Ml Oral.Susp) 30 ml PO Q6H PRN PRN Reason: Heartburn/Nausea Benztropine Mesylate (Benztropine Mesylate 1 Mg Tablet) 1 mg PO BID [facility] Last Admin: 07/06/24 08:58 Dose: 1 mg Cyanocobalamin (Cyanocobalamin (Vitamin B-12) 1,000 Mcg Tablet) 1,000 mcg PO DAILY [facility] Last Admin: 07/06/24 08:55 Dose: 1,000 mcg Divalproex Sodium (Divalproex Sodium 250 Mg Tablet.Dr) 250 mg PO TID [facility] Last Admin: 07/06/24 08:58 Dose: 250 mg Famotidine (Famotidine 20 Mg Tablet) 20 mg PO DAILY [facility] Last Admin: 07/06/24 08:58 Dose: 20 mg Furosemide (Furosemide 20 Mg Tablet) 20 mg PO DAILY [facility] Last Admin: 07/06/24 08:56 Dose: 20 mg Haloperidol (Haloperidol 5 Mg Tablet) 5 mg PO BID [facility] Last Admin: 07/06/24 08:56 Dose: 5 mg Levothyroxine Sodium (Levothyroxine Sodium 112 Mcg Tablet) 112 mcg PO DAILY@0600 [facility] Last Admin: 07/06/24 05:54 Dose: 112 mcg Lorazepam (Lorazepam 1 Mg Tablet) 1 mg PO Q6H PRN PRN Reason: anxiety/restlessness Last Admin: 07/05/24 20:28 Dose: 1 mg Magnesium Hydroxide (Milk Of Magnesia 30 Ml Oral.Susp) 30 ml PO DAILY PRN PRN Reason: Constipation Melatonin (Melatonin 3 Mg Tablet) 6 mg PO BEDTIME [facility] Last Admin: 07/05/24 20:28 Dose: 6 mg Olanzapine (Olanzapine Odt 10 Mg Tab.Rapdis) 10 mg TRANSLINGU BID PRN PRN Reason: Psychosis Ondansetron HCl (Ondansetron Odt 4 Mg Tab.Rapdis) 4 mg TRANSLINGU Q8H PRN PRN Reason: Nausea and Vomiting Senna (Sennosides 8.6 Mg Tablet) 17.2 mg PO DAILY [facility] Last Admin: 07/06/24 08:56 Dose: 17.2 mg Trazodone HCl (Trazodone Hcl 50 Mg Tablet) 50 mg PO BEDTIME MRX1 PRN PRN Reason: Insomnia Last Admin: 07/05/24 20:28 Dose: 50 mg Allergies Allergies Allergy/AdvReac Type Severity Reaction Status Date / Time No Known Allergies Allergy Verified 06/30/24 18:11 Assessment & Plan Assessment & Plan (1) Schizoaffective disorder: Status: Acute Code(s): F25.9 - Schizoaffective disorder, unspecified Plan The patient is an elderly [place] male with a past history of schizoaffective disorder bipolar type who was brought from the community due to exacerbation of psychosis and inability to take care of himself. Apparently he was living in a filthy apartment with loud music very disruptive. He was initially admitted to Medicine and later on transferring to this facility for psychiatric stabilization. Plan 1. Gather collateral information. 2. Continue with Haldol as prescribed. 3. Continue with medical workout. 4. Reassessment with results. 5. On one-to-one observation. On July 02 we change the observation to 5 minute checks. 6. Physical therapy assessment for gait. PT suggested subacute rehab as discharge planning. Reason for continued inpatient stay Substantial Risk for: inability to function, rapid decompensation and med/psych decompensation Time Spent With Patient Time: Total time managing care of this patient today __20__ minutes.
--- NOTE | 2024-07-06 12:56 | PC.NURSE ---
Bilateral edema on legs and feet noted. Psychiatrist and hospitalist made aware. Asked hospitalist to order helen stockings and encouraging elevation. Pt also has a small zita-sized open wound on his right knee. made aware. Bacitracin and bandage applied.
[2024-07-06 20:00] VITALS: BP 137/94; PULSE 87; RESP 18; TEMP 36.7; O2SAT 96
[2024-07-06] MEDS: traZODone HCL 50 MG TABLET PO (20:16)
[2024-07-06] MEDS: Melatonin 3 MG TABLET 6 MG PO (20:16)
[2024-07-06] MEDS: LORazepam 1 MG TABLET PO (20:16)
[2024-07-07] MEDS: Levothyroxine Sodium 112 MCG TABLET PO (05:46)
[2024-07-07 08:05] VITALS: BP 129/80; PULSE 104; RESP 18; TEMP 36.6; O2SAT 95
[2024-07-07] MEDS: Sennosides 8.6 MG TABLET 17.2 MG PO (08:13)
[2024-07-07] MEDS: Benztropine Mesylate 1 MG TABLET PO ×2 (08:13→20:58)
[2024-07-07] MEDS: Furosemide 20 MG TABLET PO (08:13)
[2024-07-07] MEDS: Cyanocobalamin (Vitamin B-12) 1,000 MCG TABLET 1000 MCG PO (08:13)
[2024-07-07] MEDS: HaloperidoL 5 MG TABLET PO ×2 (08:13→20:58)
[2024-07-07] MEDS: Famotidine 20 MG TABLET PO (08:13)
[2024-07-07] MEDS: Divalproex Sodium 250 MG TABLET.DR PO ×3 (08:13→20:57)
--- NOTE | 2024-07-07 10:56 | P.PNPSI_ITS ---
Subjective Subjective Date of Service: 07/07/24 Reason For Visit: Schizoaffective disorder, unspecified Subjective Notes: Conditional Voluntary Interim History: The nursing staff reported the patient was clear, self dialogue in and the afternoon he was more cooperative and pleasant more social. He slept 6 hours. On interview the patient denies new symptoms he was asking about his transferred to subacute rehab. We are ordering labs for tomorrow. Mental Status Exam Mental Status Exam Patient Appearance: Appropriate Patient Orientation: Person and Situation Level of Consciousness: Awake and Appropriate Patient Behavior: Guarded and Passive Mood Description: Withdrawn Affect Description: Constricted Patient Cognition Impaired: Yes Ability to Follow Directions: Good Speech Pattern: Clear Hallucinations: None Delusions: Not Present Thought Process: Distracted and Goal Oriented Thought Content: positive for [place] and positive for Poverty of Content Judgement: Fair Diagnostics Vital Signs (24Hr): Vital Signs - 24 hr 07/06/24 20:00 07/07/24 08:05 Temperature 98.1 F 97.8 F Pulse Rate 87 104 H Respiratory Rate 18 18 Blood Pressure 137/94 H 129/80 Pulse Oximetry 96 95 Oxygen Delivery Method Room Air Room Air Medications Medications Current Medications Acetaminophen (Acetaminophen 325 Mg Tablet) 650 mg PO Q6H PRN PRN Reason: Headache/Pain Mild Scale (1-3) Al Hydroxide/Mg Hydroxide (Magnesium Hydrox/Alum Hydrox 30 Ml Oral.Susp) 30 ml PO Q6H PRN PRN Reason: Heartburn/Nausea Benztropine Mesylate (Benztropine Mesylate 1 Mg Tablet) 1 mg PO BID [facility] Last Admin: 07/07/24 08:13 Dose: 1 mg Cyanocobalamin (Cyanocobalamin (Vitamin B-12) 1,000 Mcg Tablet) 1,000 mcg PO DAILY [facility] Last Admin: 07/07/24 08:13 Dose: 1,000 mcg Divalproex Sodium (Divalproex Sodium 250 Mg Tablet.Dr) 250 mg PO TID [facility] Last Admin: 07/07/24 08:13 Dose: 250 mg Famotidine (Famotidine 20 Mg Tablet) 20 mg PO DAILY [facility] Last Admin: 07/07/24 08:13 Dose: 20 mg Furosemide (Furosemide 20 Mg Tablet) 20 mg PO DAILY [facility] Last Admin: 07/07/24 08:13 Dose: 20 mg Haloperidol (Haloperidol 5 Mg Tablet) 5 mg PO BID [facility] Last Admin: 07/07/24 08:13 Dose: 5 mg Levothyroxine Sodium (Levothyroxine Sodium 112 Mcg Tablet) 112 mcg PO DAILY@0600 [facility] Last Admin: 07/07/24 05:46 Dose: 112 mcg Lorazepam (Lorazepam 1 Mg Tablet) 1 mg PO Q6H PRN PRN Reason: anxiety/restlessness Last Admin: 07/06/24 20:16 Dose: 1 mg Magnesium Hydroxide (Milk Of Magnesia 30 Ml Oral.Susp) 30 ml PO DAILY PRN PRN Reason: Constipation Melatonin (Melatonin 3 Mg Tablet) 6 mg PO BEDTIME [facility] Last Admin: 07/06/24 20:16 Dose: 6 mg Olanzapine (Olanzapine Odt 10 Mg Tab.Rapdis) 10 mg TRANSLINGU BID PRN PRN Reason: Psychosis Ondansetron HCl (Ondansetron Odt 4 Mg Tab.Rapdis) 4 mg TRANSLINGU Q8H PRN PRN Reason: Nausea and Vomiting Senna (Sennosides 8.6 Mg Tablet) 17.2 mg PO DAILY [facility] Last Admin: 07/07/24 08:13 Dose: 17.2 mg Trazodone HCl (Trazodone Hcl 50 Mg Tablet) 50 mg PO BEDTIME MRX1 PRN PRN Reason: Insomnia Last Admin: 07/06/24 20:16 Dose: 50 mg Allergies Allergies Allergy/AdvReac Type Severity Reaction Status Date / Time No Known Allergies Allergy Verified 06/30/24 18:11 Assessment & Plan Assessment & Plan (1) Schizoaffective disorder: Status: Acute Code(s): F25.9 - Schizoaffective disorder, unspecified Plan The patient is an elderly [place] male with a past history of schizoaffective disorder bipolar type who was brought from the community due to exacerbation of psychosis and inability to take care of himself. Apparently he was living in a filthy apartment with loud music very disruptive. He was initially admitted to Medicine and later on transferring to this facility for psychiatric stabilization. Plan 1. Gather collateral information. 2. Continue with Haldol as prescribed. 3. Continue with medical workout. 4. Reassessment with results. 5. On one-to-one observation. On July 02 we change the observation to 5 minute checks. 6. Physical therapy assessment for gait. PT suggested subacute rehab as d ischarge planning. Reason for continued inpatient stay Substantial Risk for: inability to function, rapid decompensation and med/psych decompensation Time Spent With Patient Time: Total time managing care of this patient today __20__ minutes.
[2024-07-07 20:00] VITALS: BP 141/80; PULSE 76; RESP 18; TEMP 36.8; O2SAT 98
[2024-07-07] MEDS: Melatonin 3 MG TABLET 6 MG PO (20:57)
[2024-07-07] MEDS: traZODone HCL 50 MG TABLET PO (20:58)
[2024-07-08] MEDS: Levothyroxine Sodium 112 MCG TABLET PO (06:22)
[2024-07-08 07:55] VITALS: BP 128/78; PULSE 99; RESP 18; TEMP 36.6; O2SAT 98
[2024-07-08] MEDS: Furosemide 20 MG TABLET PO (08:02)
[2024-07-08] MEDS: Sennosides 8.6 MG TABLET 17.2 MG PO (08:03)
[2024-07-08] MEDS: Cyanocobalamin (Vitamin B-12) 1,000 MCG TABLET 1000 MCG PO (08:03)
[2024-07-08] MEDS: Benztropine Mesylate 1 MG TABLET PO ×2 (08:04→20:25)
[2024-07-08] MEDS: Famotidine 20 MG TABLET PO (08:04)
[2024-07-08] MEDS: HaloperidoL 5 MG TABLET PO ×2 (08:04→20:25)
[2024-07-08] MEDS: Divalproex Sodium 250 MG TABLET.DR PO ×2 (08:04→16:27)
[2024-07-08 08:09] LABS: MANUAL DIFF FLAG NO
[2024-07-08 08:13] LABS: Basophils Percent Auto 0.3 % (0-2); Eosinophils Absolute Auto 0.3 X10*3/uL (0.0-0.4); Eosinophils Percent Auto 4.1 % (0-4); Hematocrit 39.6 % (42.0-52.0); Hemoglobin 13.2 g/dl (14.0-18.0); Imm Gran Abs Auto 0.03 X10*3/uL (0.00-0.03); Imm Gran Pct Auto 0.5 % (0.0-0.4); Lymphocytes Absolute Auto 2.6 X10*3/uL (1.2-4.9); Lymphocytes Percent Auto 41.9 % (20-40); Mean Corpuscular HGB Conc 33.3 g/dl (31.0-36.0); Mean Corpuscular Hemoglobin 30.3 pg (27.0-33.0); Mean Platelet Volume 11.1 fL (9.4-12.4); Monocytes Absolute Auto 0.5 X10*3/uL (0.1-1.2); Monocytes Percent Auto 7.9 % (2-11); Neutrophils Absolute Auto 2.8 x10*3/uL (2.0-8.3); Neutrophils Percent Auto 45.3 % (45-73); Platelet Count 290 X10*3/uL (160-400); Red Blood Count 4.35 X10*6/uL (4.60-5.80); Red Cell Distribution Width 13.5 % (11.0-16.0); White Blood Count 6.1 X10*3/uL (4.8-10.8)
[2024-07-08 08:38] LABS: Valproate 34.3 mcg/mL (50.0-100.0)
[2024-07-08 08:39] LABS: Alanine Aminotransferase 24 U/L (0-40); Albumin Level 3.6 g/dL (3.5-5.0); Alkaline Phosphatase 52 U/L (39-117); Anion Gap 12 (12-20); Aspartate Amino Transferase 20 U/L (5-37); Bilirubin Total 0.5 mg/dL (0.0-1.0); Blood Urea Nitrogen 5 mg/dL (9-16); Calcium 9.1 mg/dL (8.4-10.2); Carbon Dioxide 26 mmol/L (22-29); Chloride 105 mmol/L (96-108); Estimated Glomerular Filt Rate > 60; Glucose Fasting 118 mg/dL (60-99); Potassium 4.3 mmol/L (3.3-5.1); Sodium 139 mmol/L (135-145); Total Protein 6.3 g/dL (6.5-8.0)
--- NOTE | 2024-07-08 14:22 | P.PNPSI_ITS ---
Subjective Subjective Date of Service: 07/08/24 Reason For Visit: Schizoaffective disorder, unspecified Subjective Notes: Conditional Voluntary Interim History: The nursing staff reported the patient slept only 2 hours. His Depakote level was 34.3 today. The social services designee reported that he did several referrals and has been denied so far. On interview the patient denies new symptoms he agreed on the increase of Depakote to a therapeutic level. Mental Status Exam Mental Status Exam Patient Appearance: Well Grooomed and Appropriate Patient Orientation: Person and Situation Level of Consciousness: Awake and Appropriate Patient Behavior: Guarded and Passive Mood Description: Withdrawn Affect Description: Constricted Patient Cognition Impaired: Yes Ability to Follow Directions: Good Speech Pattern: Clear Hallucinations: None Delusions: Ideas of Reference Thought Process: Distracted and Slowed Thinking Thought Content: positive for [place] and positive for Poverty of Content Judgement: Fair Diagnostics Vital Signs (24Hr): Vital Signs - 24 hr 07/07/24 20:00 07/08/24 07:55 Temperature 98.3 F 97.9 F Pulse Rate 76 99 Respiratory Rate 18 18 Blood Pressure 141/80 H 128/78 Pulse Oximetry 98 98 Oxygen Delivery Method Room Air Room Air Labs 07/08/24 07:48 07/08/24 07:48 Labs: Laboratory Results - last 48 hr 07/08/24 07:48 WBC 6.1 RBC 4.35 L Hgb 13.2 L Hct 39.6 L MCV 91.0 MCH 30.3 MCHC 33.3 RDW 13.5 Plt Count 290 MPV 11.1 Immature Gran % (Auto) 0.5 H Neut % (Auto) 45.3 Lymph % (Auto) 41.9 H [place] % (Auto) 7.9 Eos % (Auto) 4.1 H Baso % (Auto) 0.3 Lymph # (Auto) 2.6 [place] # (Auto) 0.5 Eos # (Auto) 0.3 Baso # (Auto) 0.0 Abs Immat Gran (auto) 0.03 Absolute Neuts (auto) 2.8 Absolute Nucleated RBC 0.000 Nucleated RBC % (auto) 0.0 Sodium 139 Potassium 4.3 Chloride 105 Carbon Dioxide 26 Anion Gap 12 BUN 5 L Creatinine 0.80 Estim Creat Clear Calc TNP Estimated GFR > 60 Fasting Glucose 118 H Calcium 9.1 Total Bilirubin 0.5 AST 20 ALT 24 Alkaline Phosphatase 52 Total Protein 6.3 L Albumin 3.6 Valproic Acid 34.3 L Medications Medications Current Medications Acetaminophen (Acetaminophen 325 Mg Tablet) 650 mg PO Q6H PRN PRN Reason: Headache/Pain Mild Scale (1-3) Al Hydroxide/Mg Hydroxide (Magnesium Hydrox/Alum Hydrox 30 Ml Oral.Susp) 30 ml PO Q6H PRN PRN Reason: Heartburn/Nausea Benztropine Mesylate (Benztropine Mesylate 1 Mg Tablet) 1 mg PO BID [facility] Last Admin: 07/08/24 08:04 Dose: 1 mg Cyanocobalamin (Cyanocobalamin (Vitamin B-12) 1,000 Mcg Tablet) 1,000 mcg PO DAILY [facility] Last Admin: 07/08/24 08:03 Dose: 1,000 mcg Divalproex Sodium (Divalproex Sodium 250 Mg Tablet.) 250 mg PO BID@0800,1700 [facility] Divalproex Sodium (Divalproex Sodium 500 Mg Tablet.) 500 mg PO BEDTIME [facility] Famotidine (Famotidine 20 Mg Tablet) 20 mg PO DAILY [facility] Last Admin: 07/08/24 08:04 Dose: 20 mg Furosemide (Furosemide 20 Mg Tablet) 20 mg PO DAILY [facility] Last Admin: 07/08/24 08:02 Dose: 20 mg Haloperidol (Haloperidol 5 Mg Tablet) 5 mg PO BID [facility] Last Admin: 07/08/24 08:04 Dose: 5 mg Levothyroxine Sodium (Levothyroxine Sodium 112 Mcg Tablet) 112 mcg PO DAILY@0600 [facility] Last Admin: 07/08/24 06:22 Dose: 112 mcg Lorazepam (Lorazepam 1 Mg Tablet) 1 mg PO Q6H PRN PRN Reason: anxiety/restlessness Last Admin: 07/06/24 20:16 Dose: 1 mg Magnesium Hydroxide (Milk Of Magnesia 30 Ml Oral.Susp) 30 ml PO DAILY PRN PRN Reason: Constipation Melatonin (Melatonin 3 Mg Tablet) 6 mg PO BEDTIME [facility] Last Admin: 07/07/24 20:57 Dose: 6 mg Olanzapine (Olanzapine Odt 10 Mg Tab.Rapdis) 10 mg TRANSLINGU BID PRN PRN Reason: Psychosis Ondansetron HCl (Ondansetron Odt 4 Mg Tab.Rapdis) 4 mg TRANSLINGU Q8H PRN PRN Reason: Nausea and Vomiting Senna (Sennosides 8.6 Mg Tablet) 17.2 mg PO DAILY [facility] Last Admin: 07/08/24 08:03 Dose: 17.2 mg Trazodone HCl (Trazodone Hcl 50 Mg Tablet) 50 mg PO BEDTIME MRX1 PRN PRN Reason: Insomnia Last Admin: 07/07/24 20:58 Dose: 50 mg Allergies Allergies Allergy/AdvReac Type Severity Reaction Status Date / Time No Known Allergies Allergy Verified 06/30/24 18:11 Assessment & Plan Assessment & Plan (1) Schizoaffective disorder: Status: Acute Code(s): F25.9 - Schizoaffective disorder, unspecified Plan The patient is an elderly [place] male with a past history of schizoaffective disorder bipolar type who was brought from the community due to exacerbation of psychosis and inability to take care of himself. Apparently he was living in a filthy apartment with loud music very disruptive. He was initially admitted to Medicine and later on transferring to this facility for psychiatric stabilization. Plan 1. Gather collateral information. 2. Continue with Haldol as prescribed. 3. Continue with medical workout. 4. Reassessment with results. 5. On one-to-one observation. On July 02 we change the observation to 5 minute checks. 6. Physical therapy assessment for gait. PT suggested subacute rehab as discharge planning. 7. Depakote was increased to 250 mg p.o. b.i.d. and 500 mg at night July 08. His Depakote level on July 08 was 34.3. Reason for continued inpatient stay Substantial Risk for: inability to function, rapid decompensation and med/psych decompensation Time Spent With Patient Time: Total time managing care of this patient today __20__ minutes.
[2024-07-08 20:00] VITALS: BP 131/71; PULSE 100; RESP 16; TEMP 37.3; O2SAT 96
[2024-07-08] MEDS: Melatonin 3 MG TABLET 6 MG PO (20:24)
[2024-07-08] MEDS: Divalproex Sodium 500 MG TABLET.DR PO (20:25)
[2024-07-08] MEDS: traZODone HCL 50 MG TABLET PO (20:25)
[2024-07-09] MEDS: Levothyroxine Sodium 112 MCG TABLET PO (05:45)
[2024-07-09 07:00] VITALS: BP 128/77; PULSE 88; RESP 18; TEMP 36.8; O2SAT 98
[2024-07-09] MEDS: Cyanocobalamin (Vitamin B-12) 1,000 MCG TABLET 1000 MCG PO (08:10)
[2024-07-09] MEDS: Furosemide 20 MG TABLET PO (08:10)
[2024-07-09] MEDS: Divalproex Sodium 250 MG TABLET.DR PO ×2 (08:10→16:20)
[2024-07-09] MEDS: Sennosides 8.6 MG TABLET 17.2 MG PO (08:11)
[2024-07-09] MEDS: Famotidine 20 MG TABLET PO (08:12)
[2024-07-09] MEDS: Benztropine Mesylate 1 MG TABLET PO ×2 (08:12→21:04)
[2024-07-09] MEDS: HaloperidoL 5 MG TABLET PO ×2 (08:12→21:03)
--- NOTE | 2024-07-09 11:54 | HO.PSYCHPN ---
Subjective Subjective Date of Service: 07/09/24 Reason For Visit: Schizoaffective disorder, unspecified Subjective Notes: Conditional Voluntary Interim History: The nursing staff reported the patient has been singing yesterday, he had been in the common areas slept well. The professor of social work has referred back to his previous subacute rehab. On interview the patient denies new symptoms, compliant with treatment. Mental Status Exam Mental Status Exam Patient Appearance: Appropriate Patient Orientation: Person and Situation Level of Consciousness: Awake and Appropriate Patient Behavior: Guarded and Passive Mood Description: Withdrawn Affect Description: Constricted Patient Cognition Impaired: Yes Ability to Follow Directions: Good Speech Pattern: Clear Hallucinations: None Delusions: Not Present Thought Process: Distracted and Slowed Thinking Thought Content: positive for [place] and positive for Poverty of Content Judgement: Fair Diagnostics Vital Signs (24Hr): Vital Signs - 24 hr 07/08/24 20:00 07/09/24 07:00 Temperature 99.2 F 98.2 F Pulse Rate 100 88 Respiratory Rate 16 18 Blood Pressure 131/71 128/77 Pulse Oximetry 96 98 Oxygen Delivery Method Room Air Room Air Labs 07/08/24 07:48 07/08/24 07:48 Labs: Laboratory Results - last 48 hr 07/08/24 07:48 WBC 6.1 RBC 4.35 L Hgb 13.2 L Hct 39.6 L MCV 91.0 MCH 30.3 MCHC 33.3 RDW 13.5 Plt Count 290 MPV 11.1 Immature Gran % (Auto) 0.5 H Neut % (Auto) 45.3 Lymph % (Auto) 41.9 H [place] % (Auto) 7.9 Eos % (Auto) 4.1 H Baso % (Auto) 0.3 Lymph # (Auto) 2.6 [place] # (Auto) 0.5 Eos # (Auto) 0.3 Baso # (Auto) 0.0 Abs Immat Gran (auto) 0.03 Absolute Neuts (auto) 2.8 Absolute Nucleated RBC 0.000 Nucleated RBC % (auto) 0.0 Sodium 139 Potassium 4.3 Chloride 105 Carbon Dioxide 26 Anion Gap 12 BUN 5 L Creatinine 0.80 Estim Creat Clear Calc TNP Estimated GFR > 60 Fasting Glucose 118 H Calcium 9.1 Total Bilirubin 0.5 AST 20 ALT 24 Alkaline Phosphatase 52 Total Protein 6.3 L Albumin 3.6 Valproic Acid 34.3 L Medications Medications Current Medications Acetaminophen (Acetaminophen 325 Mg Tablet) 650 mg PO Q6H PRN PRN Reason: Headache/Pain Mild Scale (1-3) Al Hydroxide/Mg Hydroxide (Magnesium Hydrox/Alum Hydrox 30 Ml Oral.Susp) 30 ml PO Q6H PRN PRN Reason: Heartburn/Nausea Benztropine Mesylate (Benztropine Mesylate 1 Mg Tablet) 1 mg PO BID [facility] Last Admin: 07/09/24 08:12 Dose: 1 mg Cyanocobalamin (Cyanocobalamin (Vitamin B-12) 1,000 Mcg Tablet) 1,000 mcg PO DAILY [facility] Last Admin: 07/09/24 08:10 Dose: 1,000 mcg Divalproex Sodium (Divalproex Sodium 250 Mg Tablet.) 250 mg PO BID@0800,1700 [facility] Last Admin: 07/09/24 08:10 Dose: 250 mg Divalproex Sodium (Divalproex Sodium 500 Mg Tablet.) 500 mg PO BEDTIME [facility] Last Admin: 07/08/24 20:25 Dose: 500 mg Famotidine (Famotidine 20 Mg Tablet) 20 mg PO DAILY [facility] Last Admin: 07/09/24 08:12 Dose: 20 mg Furosemide (Furosemide 20 Mg Tablet) 20 mg PO DAILY [facility] Last Admin: 07/09/24 08:10 Dose: 20 mg Haloperidol (Haloperidol 5 Mg Tablet) 5 mg PO BID [facility] Last Admin: 07/09/24 08:12 Dose: 5 mg Levothyroxine Sodium (Levothyroxine Sodium 112 Mcg Tablet) 112 mcg PO DAILY@0600 [facility] Last Admin: 07/09/24 05:45 Dose: 112 mcg Lorazepam (Lorazepam 1 Mg Tablet) 1 mg PO Q6H PRN PRN Reason: anxiety/restlessness Last Admin: 07/06/24 20:16 Dose: 1 mg Magnesium Hydroxide (Milk Of Magnesia 30 Ml Oral.Susp) 30 ml PO DAILY PRN PRN Reason: Constipation Melatonin (Melatonin 3 Mg Tablet) 6 mg PO BEDTIME [facility] Last Admin: 07/08/24 20:24 Dose: 6 mg Olanzapine (Olanzapine Odt 10 Mg Tab.Rapdis) 10 mg TRANSLINGU BID PRN PRN Reason: Psychosis Ondansetron HCl (Ondansetron Odt 4 Mg Tab.Rapdis) 4 mg TRANSLINGU Q8H PRN PRN Reason: Nausea and Vomiting Senna (Sennosides 8.6 Mg Tablet) 17.2 mg PO DAILY [facility] Last Admin: 07/09/24 08:11 Dose: 17.2 mg Trazodone HCl (Trazodone Hcl 50 Mg Tablet) 50 mg PO BEDTIME MRX1 PRN PRN Reason: Insomnia Last Admin: 07/08/24 20:25 Dose: 50 mg Allergies Allergies Allergy/AdvReac Type Severity Reaction Status Date / Time No Known Allergies Allergy Verified 06/30/24 18:11 Assessment & Plan Assessment & Plan (1) Schizoaffective disorder: Status: Acute Code(s): F25.9 - Schizoaffective disorder, unspecified Plan The patient is an elderly [place] male with a past history of schizoaffective disorder bipolar type who was brought from the community due to exacerbation of psychosis and inability to take care of himself. Apparently he was living in a filthy apartment with loud music very disruptive. He was initially admitted to Medicine and later on transferring to this facility for psychiatric stabilization. Plan 1. Gather collateral information. 2. Continue with Haldol as prescribed. 3. Continue with medical workout. 4. Reassessment with results. 5. On one-to-one observation. On July 02 we change the observation to 5 minute checks. 6. Physical therapy assessment for gait. PT suggested subacute rehab as discharge planning. 7. Depakote was increased to 250 mg p.o. b.i.d. and 500 mg at night July 08. His Depakote level on July 08 was 34.3. Reason for continued inpatient stay Substantial Risk for: inability to function, rapid decompensation and med/psych decompensation Time Spent With Patient Time: Total time managing care of this patient today _20___ minutes.
[2024-07-09 20:00] VITALS: RESP 16
[2024-07-09] MEDS: traZODone HCL 50 MG TABLET PO (21:03)
[2024-07-09] MEDS: Divalproex Sodium 500 MG TABLET.DR PO (21:04)
[2024-07-09] MEDS: Melatonin 3 MG TABLET 6 MG PO (21:04)
[2024-07-10] MEDS: Acetaminophen 325 MG TABLET 650 MG PO (06:49)
[2024-07-10] MEDS: Levothyroxine Sodium 112 MCG TABLET PO (06:51)
[2024-07-10 07:55] VITALS: BP 116/70; PULSE 83; RESP 18; TEMP 36.8; O2SAT 100
[2024-07-10] MEDS: Divalproex Sodium 250 MG TABLET.DR PO ×2 (08:35→16:31)
[2024-07-10] MEDS: Sennosides 8.6 MG TABLET 17.2 MG PO (08:35)
[2024-07-10] MEDS: Cyanocobalamin (Vitamin B-12) 1,000 MCG TABLET 1000 MCG PO (08:35)
[2024-07-10] MEDS: Famotidine 20 MG TABLET PO (08:35)
[2024-07-10] MEDS: Benztropine Mesylate 1 MG TABLET PO ×2 (08:35→20:45)
[2024-07-10] MEDS: Furosemide 20 MG TABLET PO (08:35)
[2024-07-10] MEDS: HaloperidoL 5 MG TABLET PO ×2 (08:35→20:44)
--- NOTE | 2024-07-10 12:04 | P.PNPSI_ITS ---
Subjective Subjective Date of Service: 07/10/24 Reason For Visit: Schizoaffective disorder, unspecified Subjective Notes: Conditional Voluntary Interim History: The nursing staff reported the patient had been compliant with treatment, no changes in his mental status. The social media content manager reported that he had been referred to subacute rehab. On interview the patient denies new symptoms, pleasant cooperative, waiting for placement. Mental Status Exam Mental Status Exam Patient Appearance: Appropriate Patient Orientation: Person and Situation Level of Consciousness: Awake and Appropriate Patient Behavior: Guarded and Passive Mood Description: Withdrawn Affect Description: Constricted Patient Cognition Impaired: Yes Ability to Follow Directions: Good Speech Pattern: Clear Hallucinations: None Delusions: Not Present Thought Process: Distracted and Slowed Thinking Thought Content: positive for [place] and positive for Poverty of Content Judgement: Poor Diagnostics Vital Signs (24Hr): Vital Signs - 24 hr 07/09/24 20:00 07/10/24 07:55 Temperature 98.2 F Pulse Rate 83 Respiratory Rate 16 18 Blood Pressure 116/70 Pulse Oximetry 100 Oxygen Delivery Method Room Air Labs 07/08/24 07:48 07/08/24 07:48 Medications Medications Current Medications Acetaminophen (Acetaminophen 325 Mg Tablet) 650 mg PO Q6H PRN PRN Reason: Headache/Pain Mild Scale (1-3) Last Admin: 07/10/24 06:49 Dose: 650 mg Al Hydroxide/Mg Hydroxide (Magnesium Hydrox/Alum Hydrox 30 Ml Oral.Susp) 30 ml PO Q6H PRN PRN Reason: Heartburn/Nausea Benztropine Mesylate (Benztropine Mesylate 1 Mg Tablet) 1 mg PO BID [facility] Last Admin: 07/10/24 08:35 Dose: 1 mg Cyanocobalamin (Cyanocobalamin (Vitamin B-12) 1,000 Mcg Tablet) 1,000 mcg PO DAILY [facility] Last Admin: 07/10/24 08:35 Dose: 1,000 mcg Divalproex Sodium (Divalproex Sodium 250 Mg Tablet.) 250 mg PO BID@0800,1700 [facility] Last Admin: 07/10/24 08:35 Dose: 250 mg Divalproex Sodium (Divalproex Sodium 500 Mg Tablet.) 500 mg PO BEDTIME [facility] Last Admin: 07/09/24 21:04 Dose: 500 mg Famotidine (Famotidine 20 Mg Tablet) 20 mg PO DAILY [facility] Last Admin: 07/10/24 08:35 Dose: 20 mg Furosemide (Furosemide 20 Mg Tablet) 20 mg PO DAILY [facility] Last Admin: 07/10/24 08:35 Dose: 20 mg Haloperidol (Haloperidol 5 Mg Tablet) 5 mg PO BID [facility] Last Admin: 07/10/24 08:35 Dose: 5 mg Levothyroxine Sodium (Levothyroxine Sodium 112 Mcg Tablet) 112 mcg PO DAILY@0600 [facility] Last Admin: 07/10/24 06:51 Dose: 112 mcg Lorazepam (Lorazepam 1 Mg Tablet) 1 mg PO Q6H PRN PRN Reason: anxiety/restlessness Last Admin: 07/06/24 20:16 Dose: 1 mg Magnesium Hydroxide (Milk Of Magnesia 30 Ml Oral.Susp) 30 ml PO DAILY PRN PRN Reason: Constipation Melatonin (Melatonin 3 Mg Tablet) 6 mg PO BEDTIME [facility] Last Admin: 07/09/24 21:04 Dose: 6 mg Olanzapine (Olanzapine Odt 10 Mg Tab.Rapdis) 10 mg TRANSLINGU BID PRN PRN Reason: Psychosis Ondansetron HCl (Ondansetron Odt 4 Mg Tab.Rapdis) 4 mg TRANSLINGU Q8H PRN PRN Reason: Nausea and Vomiting Senna (Sennosides 8.6 Mg Tablet) 17.2 mg PO DAILY [facility] Last Admin: 07/10/24 08:35 Dose: 17.2 mg Trazodone HCl (Trazodone Hcl 50 Mg Tablet) 50 mg PO BEDTIME MRX1 PRN PRN Reason: Insomnia Last Admin: 07/09/24 21:03 Dose: 50 mg Allergies Allergies Allergy/AdvReac Type Severity Reaction Status Date / Time No Known Allergies Allergy Verified 06/30/24 18:11 Assessment & Plan Assessment & Plan (1) Schizoaffective disorder: Status: Acute Code(s): F25.9 - Schizoaffective disorder, unspecified Plan The patient is an elderly [place] Citizen male with a past history of schizoaffective disorder bipolar type who was brought from the community due to exacerbation of psychosis and inability to take care of himself. Apparently he was living in a filthy apartment with loud music very disruptive. He was initially admitted to Medicine and later on transferring to this facility for psychiatric stabilization. Plan 1. Gather collateral information. 2. Continue with Haldol as prescribed. 3. Continue with medical workout. 4. Reassessment with results. 5. On one-to-one observation. On July 02 we change the observation to 5 minute checks. 6. Physical therapy assessment for gait. PT suggested subacute rehab as discharge planning. 7. Depakote was increased to 250 mg p.o. b.i.d. and 500 mg at night July 08. His Depakote level on July 08 was 34.3. Reason for continued inpatient stay Substantial Risk for: inability to function, rapid decompensation and med/psych decompensation Time Spent With Patient Time: Total time managing care of this patient today __20__ minutes.
[2024-07-10 20:00] VITALS: BP 140/94; PULSE 100; RESP 16; TEMP 36.3; O2SAT 98
[2024-07-10] MEDS: Melatonin 3 MG TABLET 6 MG PO (20:44)
[2024-07-10] MEDS: Divalproex Sodium 500 MG TABLET.DR PO (20:45)
[2024-07-10] MEDS: LORazepam 1 MG TABLET PO (20:45)
[2024-07-10] MEDS: Ondansetron ODT 4 MG TAB.RAPDIS TRANSLINGU (21:07)
[2024-07-11] MEDS: Levothyroxine Sodium 112 MCG TABLET PO (06:27)
[2024-07-11 08:15] VITALS: BP 118/70; PULSE 90; RESP 18; TEMP 36.2; O2SAT 99
[2024-07-11] MEDS: Divalproex Sodium 250 MG TABLET.DR PO ×2 (09:13→16:23)
[2024-07-11] MEDS: Famotidine 20 MG TABLET PO (09:13)
[2024-07-11 09:14] VITALS: BP 118/70
[2024-07-11] MEDS: Cyanocobalamin (Vitamin B-12) 1,000 MCG TABLET 1000 MCG PO (09:14)
[2024-07-11] MEDS: Furosemide 20 MG TABLET PO (09:14)
[2024-07-11] MEDS: HaloperidoL 5 MG TABLET PO ×2 (09:15→20:57)
[2024-07-11] MEDS: Sennosides 8.6 MG TABLET 17.2 MG PO (09:15)
[2024-07-11] MEDS: Benztropine Mesylate 1 MG TABLET PO ×2 (09:15→20:57)
[2024-07-11 20:00] VITALS: BP 116/71; PULSE 78; RESP 15; TEMP 36.4; O2SAT 100
--- NOTE | 2024-07-11 20:40 | HO.PSYCHPN ---
Subjective Subjective Date of Service: 07/11/24 Reason For Visit: Schizoaffective disorder, unspecified Interim History: asking about melatonin and nausea PRN. orders reviewed, pt educated. per staff, taking meds, walking with walker, pleasant. no issues. Mental Status Exam Mental Status Exam Patient Appearance: Appropriate Patient Orientation: Person and Situation Level of Consciousness: Awake and Appropriate Patient Behavior: Guarded and Passive Mood Description: Withdrawn Affect Description: Constricted Patient Cognition Impaired: Yes Ability to Follow Directions: Good Speech Pattern: Clear Hallucinations: None Delusions: Not Present Thought Process: Distracted and Slowed Thinking Thought Content: positive for [place] and positive for Poverty of Content Judgement: Poor Diagnostics Vital Signs (24Hr): Vital Signs - 24 hr 07/11/24 08:15 07/11/24 09:14 Temperature 97.1 F Pulse Rate 90 Respiratory Rate 18 Blood Pressure 118/70 118/70 Pulse Oximetry 99 Oxygen Delivery Method Room Air Labs 07/08/24 07:48 07/08/24 07:48 Medications Medications Current Medications Acetaminophen (Acetaminophen 325 Mg Tablet) 650 mg PO Q6H PRN PRN Reason: Headache/Pain Mild Scale (1-3) Last Admin: 07/10/24 06:49 Dose: 650 mg Al Hydroxide/Mg Hydroxide (Magnesium Hydrox/Alum Hydrox 30 Ml Oral.Susp) 30 ml PO Q6H PRN PRN Reason: Heartburn/Nausea Benztropine Mesylate (Benztropine Mesylate 1 Mg Tablet) 1 mg PO BID [facility] Last Admin: 07/11/24 09:15 Dose: 1 mg Cyanocobalamin (Cyanocobalamin (Vitamin B-12) 1,000 Mcg Tablet) 1,000 mcg PO DAILY [facility] Last Admin: 07/11/24 09:14 Dose: 1,000 mcg Divalproex Sodium (Divalproex Sodium 250 Mg Tablet.) 250 mg PO BID@0800,1700 [facility] Last Admin: 07/11/24 16:23 Dose: 250 mg Divalproex Sodium (Divalproex Sodium 500 Mg Tablet.) 500 mg PO BEDTIME [facility] Last Admin: 07/10/24 20:45 Dose: 500 mg Famotidine (Famotidine 20 Mg Tablet) 20 mg PO DAILY [facility] Last Admin: 07/11/24 09:13 Dose: 20 mg Furosemide (Furosemide 20 Mg Tablet) 20 mg PO DAILY [facility] Last Admin: 07/11/24 09:14 Dose: 20 mg Haloperidol (Haloperidol 5 Mg Tablet) 5 mg PO BID [facility] Last Admin: 07/11/24 09:15 Dose: 5 mg Levothyroxine Sodium (Levothyroxine Sodium 112 Mcg Tablet) 112 mcg PO DAILY@0600 [facility] Last Admin: 07/11/24 06:27 Dose: 112 mcg Lorazepam (Lorazepam 1 Mg Tablet) 1 mg PO Q6H PRN PRN Reason: anxiety/restlessness Last Admin: 07/10/24 20:45 Dose: 1 mg Magnesium Hydroxide (Milk Of Magnesia 30 Ml Oral.Susp) 30 ml PO DAILY PRN PRN Reason: Constipation Melatonin (Melatonin 3 Mg Tablet) 9 mg PO BEDTIME [facility] Olanzapine (Olanzapine Odt 10 Mg Tab.Rapdis) 10 mg TRANSLINGU BID PRN PRN Reason: Psychosis Ondansetron HCl (Ondansetron Odt 4 Mg Tab.Rapdis) 4 mg TRANSLINGU Q8H PRN PRN Reason: Nausea and Vomiting Last Admin: 07/10/24 21:07 Dose: 4 mg Senna (Sennosides 8.6 Mg Tablet) 17.2 mg PO DAILY [facility] Last Admin: 07/11/24 09:15 Dose: 17.2 mg Trazodone HCl (Trazodone Hcl 50 Mg Tablet) 50 mg PO BEDTIME MRX1 PRN PRN Reason: Insomnia Last Admin: 07/09/24 21:03 Dose: 50 mg Allergies Allergies Allergy/AdvReac Type Severity Reaction Status Date / Time No Known Allergies Allergy Verified 06/30/24 18:11 Assessment & Plan Assessment & Plan (1) Schizoaffective disorder: Status: Acute Code(s): F25.9 - Schizoaffective disorder, unspecified Plan The patient is an elderly [place] male with a past history of schizoaffective disorder bipolar type who was brought from the community due to exacerbation of psychosis and inability to take care of himself. Apparently he was living in a filthy apartment with loud music very disruptive. He was initially admitted to Medicine and later on transferring to this facility for psychiatric stabilization. Plan 1. Gather collateral information. 2. Continue with Haldol as prescribed. 3. Continue with medical workout. 4. Reassessment with results. 5. On one-to-one observation. On July 02 we change the observation to 5 minute checks. 6. Physical therapy assessment for gait. PT suggested subacute rehab as discharge planning. 7. Depakote was increased to 250 mg p.o. b.i.d. and 500 mg at night July 08. His Depakote level on July 08 was 34.3. Reason for continued inpatient stay Substantial Risk for: rapid decompensation Time Spent With Patient Time: Total time managing care of this patient today ____ minutes.
[2024-07-11] MEDS: Divalproex Sodium 500 MG TABLET.DR PO (20:57)
[2024-07-11] MEDS: Melatonin 3 MG TABLET 9 MG PO (20:58)
[2024-07-11] MEDS: traZODone HCL 50 MG TABLET PO (21:01)
[2024-07-12] MEDS: Levothyroxine Sodium 112 MCG TABLET PO (06:50)
[2024-07-12 08:00] VITALS: BP 136/85; PULSE 106; RESP 18; TEMP 36.2; O2SAT 100
[2024-07-12] MEDS: HaloperidoL 5 MG TABLET PO ×2 (08:25→21:19)
[2024-07-12] MEDS: Furosemide 20 MG TABLET PO (08:25)
[2024-07-12] MEDS: Cyanocobalamin (Vitamin B-12) 1,000 MCG TABLET 1000 MCG PO (08:25)
[2024-07-12] MEDS: Famotidine 20 MG TABLET PO (08:25)
[2024-07-12] MEDS: Benztropine Mesylate 1 MG TABLET PO ×2 (08:25→21:19)
[2024-07-12] MEDS: Divalproex Sodium 250 MG TABLET.DR PO ×2 (08:26→16:18)
[2024-07-12] MEDS: Sennosides 8.6 MG TABLET 17.2 MG PO (08:26)
--- NOTE | 2024-07-12 15:13 | HO.PSYCHPN ---
Subjective Subjective Date of Service: 07/12/24 Reason For Visit: Schizoaffective disorder, unspecified Interim History: rapid right hand tremor. pleasant, cooperative, appreciative. discussed melatonin and zofran successes. no questions or complaints. per staff, groped female staff's breast, attempted to grope crotch, sexualized comments. Mental Status Exam Mental Status Exam Patient Appearance: Appropriate Patient Orientation: Person and Situation Level of Consciousness: Awake and Appropriate Patient Behavior: Guarded and Passive Mood Description: Withdrawn Affect Description: Constricted Patient Cognition Impaired: Yes Ability to Follow Directions: Good Speech Pattern: Clear Hallucinations: None Delusions: Not Present Thought Process: Distracted and Slowed Thinking Thought Content: positive for [place] and positive for Poverty of Content Judgement: Poor Diagnostics Vital Signs (24Hr): Vital Signs - 24 hr 07/11/24 20:00 07/12/24 08:00 Temperature 97.5 F 97.1 F Pulse Rate 78 106 H Respiratory Rate 15 18 Blood Pressure 116/71 136/85 Pulse Oximetry 100 100 Oxygen Delivery Method Room Air Room Air Labs 07/08/24 07:48 07/08/24 07:48 Medications Medications Current Medications Acetaminophen (Acetaminophen 325 Mg Tablet) 650 mg PO Q6H PRN PRN Reason: Headache/Pain Mild Scale (1-3) Last Admin: 07/10/24 06:49 Dose: 650 mg Al Hydroxide/Mg Hydroxide (Magnesium Hydrox/Alum Hydrox 30 Ml Oral.Susp) 30 ml PO Q6H PRN PRN Reason: Heartburn/Nausea Benztropine Mesylate (Benztropine Mesylate 1 Mg Tablet) 1 mg PO BID [facility] Last Admin: 07/12/24 08:25 Dose: 1 mg Cyanocobalamin (Cyanocobalamin (Vitamin B-12) 1,000 Mcg Tablet) 1,000 mcg PO DAILY [facility] Last Admin: 07/12/24 08:25 Dose: 1,000 mcg Divalproex Sodium (Divalproex Sodium 250 Mg Tablet.) 250 mg PO BID@0800,1700 [facility] Last Admin: 07/12/24 08:26 Dose: 250 mg Divalproex Sodium (Divalproex Sodium 500 Mg Tablet.) 500 mg PO BEDTIME [facility] Last Admin: 07/11/24 20:57 Dose: 500 mg Famotidine (Famotidine 20 Mg Tablet) 20 mg PO DAILY [facility] Last Admin: 07/12/24 08:25 Dose: 20 mg Furosemide (Furosemide 20 Mg Tablet) 20 mg PO DAILY [facility] Last Admin: 07/12/24 08:25 Dose: 20 mg Haloperidol (Haloperidol 5 Mg Tablet) 5 mg PO BID [facility] Last Admin: 07/12/24 08:25 Dose: 5 mg Levothyroxine Sodium (Levothyroxine Sodium 112 Mcg Tablet) 112 mcg PO DAILY@0600 [facility] Last Admin: 07/12/24 06:50 Dose: 112 mcg Lorazepam (Lorazepam 1 Mg Tablet) 1 mg PO Q6H PRN PRN Reason: anxiety/restlessness Last Admin: 07/10/24 20:45 Dose: 1 mg Magnesium Hydroxide (Milk Of Magnesia 30 Ml Oral.Susp) 30 ml PO DAILY PRN PRN Reason: Constipation Melatonin (Melatonin 3 Mg Tablet) 9 mg PO BEDTIME [facility] Last Admin: 07/11/24 20:58 Dose: 9 mg Olanzapine (Olanzapine Odt 10 Mg Tab.Rapdis) 10 mg TRANSLINGU BID PRN PRN Reason: Psychosis Ondansetron HCl (Ondansetron Odt 4 Mg Tab.Rapdis) 4 mg TRANSLINGU Q8H PRN PRN Reason: Nausea and Vomiting Last Admin: 07/10/24 21:07 Dose: 4 mg Senna (Sennosides 8.6 Mg Tablet) 17.2 mg PO DAILY [facility] Last Admin: 07/12/24 08:26 Dose: 17.2 mg Trazodone HCl (Trazodone Hcl 50 Mg Tablet) 50 mg PO BEDTIME MRX1 PRN PRN Reason: Insomnia Last Admin: 07/11/24 21:01 Dose: 50 mg Allergies Allergies Allergy/AdvReac Type Severity Reaction Status Date / Time No Known Allergies Allergy Verified 06/30/24 18:11 Assessment & Plan Assessment & Plan (1) Schizoaffective disorder: Status: Acute Code(s): F25.9 - Schizoaffective disorder, unspecified Plan The patient is an elderly [place]ic male with a past history of schizoaffective disorder bipolar type who was brought from the community due to exacerbation of psychosis and inability to take care of himself. Apparently he was living in a filthy apartment with loud music very disruptive. He was initially admitted to Medicine and later on transferring to this facility for psychiatric stabilization. Plan 1. Gather collateral information. 2. Continue with Haldol as prescribed. 3. Continue with medical workout. 4. Reassessment with results. 5. On one-to-one observation. On July 02 we change the observation to 5 minute checks. 6. Physical therapy assessment for gait. PT suggested subacute rehab as discharge planning. 7. Depakote was increased to 250 mg p.o. b.i.d. and 500 mg at night July 08. His Depakote level on July 08 was 34.3. Reason for continued inpatient stay Substantial Risk for: inability to function and rapid decompensation Time Spent With Patient Time: Total time managing care of this patient today ____ minutes.
--- NOTE | 2024-07-12 16:55 | PC.NURSE ---
Patient is upset that the kitchen will not give him rice and beans to eat for supper. He said that he doesn't need ground food. Message left on shift report, ? ST eval to upgrade diet.
[2024-07-12 20:00] VITALS: BP 134/76; PULSE 88; RESP 18; TEMP 36.4; O2SAT 98
[2024-07-12] MEDS: Divalproex Sodium 500 MG TABLET.DR PO (21:19)
[2024-07-12] MEDS: LORazepam 1 MG TABLET PO (21:19)
[2024-07-12] MEDS: traZODone HCL 50 MG TABLET PO (21:19)
[2024-07-12] MEDS: Melatonin 3 MG TABLET 9 MG PO (21:19)
[2024-07-12] MEDS: Ondansetron ODT 4 MG TAB.RAPDIS TRANSLINGU (21:28)
[2024-07-13] MEDS: Levothyroxine Sodium 112 MCG TABLET PO (05:23)
[2024-07-13 07:39] VITALS: BP 122/76; PULSE 73; RESP 18; TEMP 36.8; O2SAT 98
[2024-07-13] MEDS: Famotidine 20 MG TABLET PO (08:08)
[2024-07-13] MEDS: Sennosides 8.6 MG TABLET 17.2 MG PO (08:08)
[2024-07-13] MEDS: Furosemide 20 MG TABLET PO (08:08)
[2024-07-13] MEDS: Benztropine Mesylate 1 MG TABLET PO ×2 (08:08→21:37)
[2024-07-13] MEDS: HaloperidoL 5 MG TABLET PO ×2 (08:08→21:36)
[2024-07-13] MEDS: Cyanocobalamin (Vitamin B-12) 1,000 MCG TABLET 1000 MCG PO (08:09)
[2024-07-13] MEDS: Divalproex Sodium 250 MG TABLET.DR PO ×2 (08:09→16:43)
--- NOTE | 2024-07-13 16:18 | HO.PSYCHPN ---
Subjective Subjective Date of Service: 07/13/24 Reason For Visit: Schizoaffective disorder, unspecified Interim History: engaging, pleasant, cooperative. c/o having vomited last night. reminded of zofran and to ask for it if he is feeling nauseated. also c/o poor sleep, referred to take it up with attending tomorrow. per staff, pt did vomit last night. no other notable events or behaviors. Mental Status Exam Mental Status Exam Patient Appearance: Appropriate Patient Orientation: Person and Situation Level of Consciousness: Awake and Appropriate Patient Behavior: Guarded and Passive Mood Description: Withdrawn Affect Description: Constricted Patient Cognition Impaired: Yes Ability to Follow Directions: Good Speech Pattern: Clear Hallucinations: None Delusions: Not Present Thought Process: Distracted and Slowed Thinking Thought Content: positive for [place] and positive for Poverty of Content Judgement: Poor Diagnostics Vital Signs (24Hr): Vital Signs - 24 hr 07/12/24 20:00 07/13/24 07:39 Temperature 97.6 F 98.2 F Pulse Rate 88 73 Respiratory Rate 18 18 Blood Pressure 134/76 122/76 Pulse Oximetry 98 98 Oxygen Delivery Method Room Air Room Air Labs 07/08/24 07:48 07/08/24 07:48 Medications Medications Current Medications Acetaminophen (Acetaminophen 325 Mg Tablet) 650 mg PO Q6H PRN PRN Reason: Headache/Pain Mild Scale (1-3) Last Admin: 07/10/24 06:49 Dose: 650 mg Al Hydroxide/Mg Hydroxide (Magnesium Hydrox/Alum Hydrox 30 Ml Oral.Susp) 30 ml PO Q6H PRN PRN Reason: Heartburn/Nausea Benztropine Mesylate (Benztropine Mesylate 1 Mg Tablet) 1 mg PO BID [facility] Last Admin: 07/13/24 08:08 Dose: 1 mg Cyanocobalamin (Cyanocobalamin (Vitamin B-12) 1,000 Mcg Tablet) 1,000 mcg PO DAILY [facility] Last Admin: 07/13/24 08:09 Dose: 1,000 mcg Divalproex Sodium (Divalproex Sodium 250 Mg Tablet.) 250 mg PO BID@0800,1700 [facility] Last Admin: 07/13/24 08:09 Dose: 250 mg Divalproex Sodium (Divalproex Sodium 500 Mg Tablet.) 500 mg PO BEDTIME [facility] Last Admin: 07/12/24 21:19 Dose: 500 mg Famotidine (Famotidine 20 Mg Tablet) 20 mg PO DAILY [facility] Last Admin: 07/13/24 08:08 Dose: 20 mg Furosemide (Furosemide 20 Mg Tablet) 20 mg PO DAILY [facility] Last Admin: 07/13/24 08:08 Dose: 20 mg Haloperidol (Haloperidol 5 Mg Tablet) 5 mg PO BID [facility] Last Admin: 07/13/24 08:08 Dose: 5 mg Levothyroxine Sodium (Levothyroxine Sodium 112 Mcg Tablet) 112 mcg PO DAILY@0600 [facility] Last Admin: 07/13/24 05:23 Dose: 112 mcg Lorazepam (Lorazepam 1 Mg Tablet) 1 mg PO Q6H PRN PRN Reason: anxiety/restlessness Last Admin: 07/12/24 21:19 Dose: 1 mg Magnesium Hydroxide (Milk Of Magnesia 30 Ml Oral.Susp) 30 ml PO DAILY PRN PRN Reason: Constipation Melatonin (Melatonin 3 Mg Tablet) 9 mg PO BEDTIME [facility] Last Admin: 07/12/24 21:19 Dose: 9 mg Olanzapine (Olanzapine Odt 10 Mg Tab.Rapdis) 10 mg TRANSLINGU BID PRN PRN Reason: Psychosis Ondansetron HCl (Ondansetron Odt 4 Mg Tab.Rapdis) 4 mg TRANSLINGU Q8H PRN PRN Reason: Nausea and Vomiting Last Admin: 07/12/24 21:28 Dose: 4 mg Senna (Sennosides 8.6 Mg Tablet) 17.2 mg PO DAILY [facility] Last Admin: 07/13/24 08:08 Dose: 17.2 mg Trazodone HCl (Trazodone Hcl 50 Mg Tablet) 50 mg PO BEDTIME MRX1 PRN PRN Reason: Insomnia Last Admin: 07/12/24 21:19 Dose: 50 mg Allergies Allergies Allergy/AdvReac Type Severity Reaction Status Date / Time No Known Allergies Allergy Verified 06/30/24 18:11 Assessment & Plan Assessment & Plan (1) Schizoaffective disorder: Status: Acute Code(s): F25.9 - Schizoaffective disorder, unspecified Plan The patient is an elderly Italian male with a past history of schizoaffective disorder bipolar type who was brought from the community due to exacerbation of psychosis and inability to take care of himself. Apparently he was living in a filthy apartment with loud music very disruptive. He was initially admitted to Medicine and later on transferring to this facility for psychiatric stabilization. Plan 1. Gather collateral information. 2. Continue with Haldol as prescribed. 3. Continue with medical workout. 4. Reassessment with results. 5. On one-to-one observation. On July 02 we change the observation to 5 minute checks. 6. Physical therapy assessment for gait. PT suggested subacute rehab as discharge planning. 7. Depakote was increased to 250 mg p.o. b.i.d. and 500 mg at night July 08. His Depakote level on July 08 was 34.3. 07/12: zofran added PRN nausea, melatonin increased to 9 mg. 07/13: continues to vomit eves. reminded to ask for zofran if nauseated. c/o insomnia, will discuss with attending tomorrow. Reason for continued inpatient stay Substantial Risk for: inability to function and rapid decompensation Time Spent With Patient Time: Total time managing care of this patient today ____ minutes.
[2024-07-13 20:00] VITALS: BP 134/86; PULSE 80; RESP 18; TEMP 36.5; O2SAT 98
[2024-07-13] MEDS: Melatonin 3 MG TABLET 9 MG PO (21:36)
[2024-07-13] MEDS: traZODone HCL 50 MG TABLET PO (21:36)
[2024-07-13] MEDS: Divalproex Sodium 500 MG TABLET.DR PO (21:37)
[2024-07-13] MEDS: LORazepam 1 MG TABLET PO (21:37)
[2024-07-14] MEDS: Ondansetron ODT 4 MG TAB.RAPDIS TRANSLINGU (02:24)
[2024-07-14] MEDS: Acetaminophen 325 MG TABLET 650 MG PO (03:07)
[2024-07-14] MEDS: Levothyroxine Sodium 112 MCG TABLET PO (06:35)
[2024-07-14 08:00] VITALS: BP 118/78; PULSE 93; RESP 18; TEMP 36.9; O2SAT 99
[2024-07-14] MEDS: Divalproex Sodium 250 MG TABLET.DR PO ×2 (08:29→18:02)
[2024-07-14] MEDS: HaloperidoL 5 MG TABLET PO ×2 (08:30→21:20)
[2024-07-14] MEDS: Benztropine Mesylate 1 MG TABLET PO ×2 (08:30→21:21)
[2024-07-14] MEDS: Furosemide 20 MG TABLET PO (08:30)
[2024-07-14] MEDS: Cyanocobalamin (Vitamin B-12) 1,000 MCG TABLET 1000 MCG PO (08:30)
[2024-07-14] MEDS: Sennosides 8.6 MG TABLET 17.2 MG PO (08:30)
[2024-07-14] MEDS: Famotidine 20 MG TABLET PO (08:30)
--- NOTE | 2024-07-14 12:22 | HO.PSYCHPN ---
Subjective Subjective Date of Service: 07/14/24 Reason For Visit: Schizoaffective disorder, unspecified Subjective Notes: Conditional Voluntary Interim History: The nursing staff reported the patient had been cooperative pleasant. The long term care social worker reported that he was been referred to subacute rehab. On interview the patient denies new symptoms pleasant, no changes in mental status. Mental Status Exam Mental Status Exam Patient Appearance: Appropriate Patient Orientation: Person and Situation Level of Consciousness: Awake and Appropriate Patient Behavior: Guarded and Passive Mood Description: Withdrawn Affect Description: Constricted Patient Cognition Impaired: Yes Ability to Follow Directions: Good Speech Pattern: Clear Hallucinations: None Delusions: Not Present Thought Process: Distracted and Slowed Thinking Thought Content: positive for Poverty of Content and positive for Thought Blocking Judgement: Fair Diagnostics Vital Signs (24Hr): Vital Signs - 24 hr 07/13/24 20:00 07/14/24 08:00 Temperature 97.7 F 98.4 F Pulse Rate 80 93 Respiratory Rate 18 18 Blood Pressure 134/86 118/78 Pulse Oximetry 98 99 Oxygen Delivery Method Room Air Room Air Labs 07/08/24 07:48 07/08/24 07:48 Medications Medications Current Medications Acetaminophen (Acetaminophen 325 Mg Tablet) 650 mg PO Q6H PRN PRN Reason: Headache/Pain Mild Scale (1-3) Last Admin: 07/14/24 03:07 Dose: 650 mg Al Hydroxide/Mg Hydroxide (Magnesium Hydrox/Alum Hydrox 30 Ml Oral.Susp) 30 ml PO Q6H PRN PRN Reason: Heartburn/Nausea Benztropine Mesylate (Benztropine Mesylate 1 Mg Tablet) 1 mg PO BID [facility] Last Admin: 07/14/24 08:30 Dose: 1 mg Cyanocobalamin (Cyanocobalamin (Vitamin B-12) 1,000 Mcg Tablet) 1,000 mcg PO DAILY [facility] Last Admin: 07/14/24 08:30 Dose: 1,000 mcg Divalproex Sodium (Divalproex Sodium 250 Mg Tablet.) 250 mg PO BID@0800,1700 [facility] Last Admin: 07/14/24 08:29 Dose: 250 mg Divalproex Sodium (Divalproex Sodium 500 Mg Tablet.) 500 mg PO BEDTIME [facility] Last Admin: 07/13/24 21:37 Dose: 500 mg Famotidine (Famotidine 20 Mg Tablet) 20 mg PO DAILY [facility] Last Admin: 07/14/24 08:30 Dose: 20 mg Furosemide (Furosemide 20 Mg Tablet) 20 mg PO DAILY [facility] Last Admin: 07/14/24 08:30 Dose: 20 mg Haloperidol (Haloperidol 5 Mg Tablet) 5 mg PO BID [facility] Last Admin: 07/14/24 08:30 Dose: 5 mg Levothyroxine Sodium (Levothyroxine Sodium 112 Mcg Tablet) 112 mcg PO DAILY@0600 [facility] Last Admin: 07/14/24 06:35 Dose: 112 mcg Lorazepam (Lorazepam 1 Mg Tablet) 1 mg PO Q6H PRN PRN Reason: anxiety/restlessness Last Admin: 07/13/24 21:37 Dose: 1 mg Magnesium Hydroxide (Milk Of Magnesia 30 Ml Oral.Susp) 30 ml PO DAILY PRN PRN Reason: Constipation Melatonin (Melatonin 3 Mg Tablet) 9 mg PO BEDTIME [facility] Last Admin: 07/13/24 21:36 Dose: 9 mg Olanzapine (Olanzapine Odt 10 Mg Tab.Rapdis) 10 mg TRANSLINGU BID PRN PRN Reason: Psychosis Ondansetron HCl (Ondansetron Odt 4 Mg Tab.Rapdis) 4 mg TRANSLINGU Q8H PRN PRN Reason: Nausea and Vomiting Last Admin: 07/14/24 02:24 Dose: 4 mg Senna (Sennosides 8.6 Mg Tablet) 17.2 mg PO DAILY [facility] Last Admin: 07/14/24 08:30 Dose: 17.2 mg Trazodone HCl (Trazodone Hcl 50 Mg Tablet) 50 mg PO BEDTIME MRX1 PRN PRN Reason: Insomnia Last Admin: 07/13/24 21:36 Dose: 50 mg Allergies Allergies Allergy/AdvReac Type Severity Reaction Status Date / Time No Known Allergies Allergy Verified 06/30/24 18:11 Assessment & Plan Assessment & Plan (1) Schizoaffective disorder: Status: Acute Code(s): F25.9 - Schizoaffective disorder, unspecified Plan The patient is an elderly [place]riot male with a past history of schizoaffective disorder bipolar type who was brought from the community due to exacerbation of psychosis and inability to take care of himself. Apparently he was living in a filthy apartment with loud music very disruptive. He was initially admitted to Medicine and later on transferring to this facility for psychiatric stabilization. Plan 1. Gather collateral information. 2. [facility] with [facility] as prescribed. 3. Continue with medical workout. 4. Reassessment with results. 5. On one-to-one observation. On July 02 we change the observation to 5 minute checks. 6. Physical therapy assessment for gait. PT suggested subacute rehab as discharge planning. 7. Depakote was increased to 250 mg p.o. b.i.d. and 500 mg at night July 08. His Depakote level on July 08 was 34.3. 8. Referral to subacute rehab. Reason for continued inpatient stay Substantial Risk for: inability to function, rapid decompensation and med/psych decompensation Time Spent With Patient Time: Total time managing care of this patient today __20__ minutes.
[2024-07-14 20:00] VITALS: BP 128/67; PULSE 99; RESP 18; TEMP 36.2; O2SAT 100
[2024-07-14] MEDS: traZODone HCL 50 MG TABLET PO (21:20)
[2024-07-14] MEDS: Divalproex Sodium 500 MG TABLET.DR PO (21:20)
[2024-07-14] MEDS: Melatonin 3 MG TABLET 9 MG PO (21:20)
[2024-07-15] MEDS: Acetaminophen 325 MG TABLET 650 MG PO (04:25)
[2024-07-15] MEDS: Ondansetron ODT 4 MG TAB.RAPDIS TRANSLINGU (04:26)
[2024-07-15] MEDS: Levothyroxine Sodium 112 MCG TABLET PO (05:37)
[2024-07-15 09:23] VITALS: BP 127/79; PULSE 75; RESP 16; TEMP 36.6; O2SAT 99
[2024-07-15] MEDS: Benztropine Mesylate 1 MG TABLET PO ×2 (09:24→20:54)
[2024-07-15] MEDS: Furosemide 20 MG TABLET PO (09:25)
[2024-07-15] MEDS: Divalproex Sodium 250 MG TABLET.DR PO ×2 (09:25→16:51)
[2024-07-15] MEDS: HaloperidoL 5 MG TABLET PO ×2 (09:25→20:55)
[2024-07-15] MEDS: Cyanocobalamin (Vitamin B-12) 1,000 MCG TABLET 1000 MCG PO (09:25)
[2024-07-15] MEDS: Sennosides 8.6 MG TABLET 17.2 MG PO (09:25)
[2024-07-15] MEDS: Famotidine 20 MG TABLET PO (09:25)
--- NOTE | 2024-07-15 15:04 | P.PNPSI_ITS ---
Subjective Subjective Date of Service: 07/15/24 Reason For Visit: Schizoaffective disorder, unspecified Subjective Notes: Conditional Voluntary Interim History: The nursing staff reported the patient had been visible in the unit visible watching TV. Was encouraged to ambulate. The social service manager reported that they are still looking for to facilities for short-term rehabilitation. On interview the patient denies new symptoms no evidence of psychosis pleasant cooperative waiting for placement Mental Status Exam Mental Status Exam Patient Appearance: Appropriate Patient Orientation: Person and Situation Level of Consciousness: Awake and Appropriate Patient Behavior: Guarded and Passive Mood Description: Withdrawn Affect Description: Constricted Patient Cognition Impaired: Yes Ability to Follow Directions: Good Speech Pattern: Clear Hallucinations: None Delusions: Not Present Thought Process: Distracted and Slowed Thinking Thought Content: positive for [place] and positive for Poverty of Content Judgement: Fair Diagnostics Vital Signs (24Hr): Vital Signs - 24 hr 07/14/24 20:00 07/15/24 09:23 Temperature 97.2 F 97.9 F Pulse Rate 99 75 Respiratory Rate 18 16 Blood Pressure 128/67 127/79 Pulse Oximetry 100 99 Oxygen Delivery Method Room Air Room Air Labs 07/08/24 07:48 07/08/24 07:48 Medications Medications Current Medications Acetaminophen (Acetaminophen 325 Mg Tablet) 650 mg PO Q6H PRN PRN Reason: Headache/Pain Mild Scale (1-3) Last Admin: 07/15/24 04:25 Dose: 650 mg Al Hydroxide/Mg Hydroxide (Magnesium Hydrox/Alum Hydrox 30 Ml Oral.Susp) 30 ml PO Q6H PRN PRN Reason: Heartburn/Nausea Benztropine Mesylate (Benztropine Mesylate 1 Mg Tablet) 1 mg PO BID [facility] Last Admin: 07/15/24 09:24 Dose: 1 mg Cyanocobalamin (Cyanocobalamin (Vitamin B-12) 1,000 Mcg Tablet) 1,000 mcg PO DAILY [facility] Last Admin: 07/15/24 09:25 Dose: 1,000 mcg Divalproex Sodium (Divalproex Sodium 250 Mg Tablet.) 250 mg PO BID@0800,1700 [facility] Last Admin: 07/15/24 09:25 Dose: 250 mg Divalproex Sodium (Divalproex Sodium 500 Mg Tablet.) 500 mg PO BEDTIME [facility] Last Admin: 07/14/24 21:20 Dose: 500 mg Famotidine (Famotidine 20 Mg Tablet) 20 mg PO DAILY [facility] Last Admin: 07/15/24 09:25 Dose: 20 mg Furosemide (Furosemide 20 Mg Tablet) 20 mg PO DAILY [facility] Last Admin: 07/15/24 09:25 Dose: 20 mg Haloperidol (Haloperidol 5 Mg Tablet) 5 mg PO BID [facility] Last Admin: 07/15/24 09:25 Dose: 5 mg Levothyroxine Sodium (Levothyroxine Sodium 112 Mcg Tablet) 112 mcg PO DAILY@0600 [facility] Last Admin: 07/15/24 05:37 Dose: 112 mcg Lorazepam (Lorazepam 1 Mg Tablet) 1 mg PO Q6H PRN PRN Reason: anxiety/restlessness Last Admin: 07/13/24 21:37 Dose: 1 mg Magnesium Hydroxide (Milk Of Magnesia 30 Ml Oral.Susp) 30 ml PO DAILY PRN PRN Reason: Constipation Melatonin (Melatonin 3 Mg Tablet) 9 mg PO BEDTIME [facility] Last Admin: 07/14/24 21:20 Dose: 9 mg Olanzapine (Olanzapine Odt 10 Mg Tab.Rapdis) 10 mg TRANSLINGU BID PRN PRN Reason: Psychosis Ondansetron HCl (Ondansetron Odt 4 Mg Tab.Rapdis) 4 mg TRANSLINGU Q8H PRN PRN Reason: Nausea and Vomiting Last Admin: 07/15/24 04:26 Dose: 4 mg Senna (Sennosides 8.6 Mg Tablet) 17.2 mg PO DAILY [facility] Last Admin: 07/15/24 09:25 Dose: 17.2 mg Trazodone HCl (Trazodone Hcl 50 Mg Tablet) 50 mg PO BEDTIME MRX1 PRN PRN Reason: Insomnia Last Admin: 07/14/24 21:20 Dose: 50 mg Allergies Allergies Allergy/AdvReac Type Severity Reaction Status Date / Time No Known Allergies Allergy Verified 06/30/24 18:11 Assessment & Plan Assessment & Plan (1) Schizoaffective disorder: Status: Acute Code(s): F25.9 - Schizoaffective disorder, unspecified Plan The patient is an elderly [place]ij[place] male with a past history of schizoaffective disorder bipolar type who was brought from the community due to exacerbation of psychosis and inability to take care of himself. Apparently he was living in a filthy apartment with loud music very disruptive. He was initially admitted to Medicine and later on transferring to this facility for psychiatric stabilization. Plan 1. Gather collateral information. 2. Continue with Haldol as prescribed. 3. Continue with medical workout. 4. Reassessment with results. 5. On one-to-one observation. On July 02 we change the observation to 5 minute checks. 6. Physical therapy assessment for gait. PT suggested subacute rehab as discharge planning. 7. Depakote was increased to 250 mg p.o. b.i.d. and 500 mg at night July 08. His Depakote level on July 08 was 34.3. 8. Referral to subacute rehab. Reason for continued inpatient stay Substantial Risk for: inability to function, rapid decompensation and med/psych decompensation Time Spent With Patient Time: Total time managing care of this patient today ____ minutes.
[2024-07-15 20:00] VITALS: BP 134/94; PULSE 81; RESP 18; TEMP 36.6; O2SAT 98
[2024-07-15] MEDS: LORazepam 1 MG TABLET PO (20:54)
[2024-07-15] MEDS: Melatonin 3 MG TABLET 9 MG PO (20:54)
[2024-07-15] MEDS: traZODone HCL 50 MG TABLET PO (20:55)
[2024-07-15] MEDS: Divalproex Sodium 500 MG TABLET.DR PO (20:55)
--- NOTE | 2024-07-16 | ECG_ITS ---
Test Reason : QTC CHECK Blood Pressure : / mmHG Vent. Rate : 069 BPM Atrial Rate : 069 BPM P-R Int : 134 ms QRS Dur : 076 ms QT Int : 378 ms P-R-T Axes : 049 -04 009 degrees QTc Int : 405 ms Normal sinus rhythm Minimal voltage criteria for LVH, may be normal variant ( R in aVL ) Borderline ECG No previous ECGs available Referred By: Edison Andrade Electronically Signed By:BERNICE CONCEPCION
[2024-07-16] MEDS: Levothyroxine Sodium 112 MCG TABLET PO (05:41)
[2024-07-16 07:00] VITALS: BMI 33.9
[2024-07-16 08:00] VITALS: BP 129/84; PULSE 72; RESP 18; TEMP 36; O2SAT 99
[2024-07-16] MEDS: Benztropine Mesylate 1 MG TABLET PO ×2 (08:22→20:15)
[2024-07-16] MEDS: HaloperidoL 5 MG TABLET PO ×2 (08:22→20:15)
[2024-07-16] MEDS: Sennosides 8.6 MG TABLET 17.2 MG PO (08:22)
[2024-07-16] MEDS: Divalproex Sodium 250 MG TABLET.DR PO ×2 (08:22→17:01)
[2024-07-16] MEDS: Furosemide 20 MG TABLET PO (08:22)
[2024-07-16] MEDS: Famotidine 20 MG TABLET PO (08:22)
[2024-07-16] MEDS: Cyanocobalamin (Vitamin B-12) 1,000 MCG TABLET 1000 MCG PO (08:22)
--- NOTE | 2024-07-16 14:35 | HO.PSYCHPN ---
Subjective Subjective Date of Service: 07/16/24 Reason For Visit: Schizoaffective disorder, unspecified Subjective Notes: Conditional Voluntary Interim History: The nursing staff reported the patient had been pleasant cooperative he has poor safety awareness. The manager social media reported that he had been accepted to subacute rehabs and he will choose for to go. On interview the patient denies new symptoms waiting for placement. Mental Status Exam Mental Status Exam Patient Appearance: Appropriate Patient Orientation: Person and Situation Level of Consciousness: Awake and Appropriate Patient Behavior: Guarded and Passive Mood Description: Withdrawn Affect Description: Constricted Patient Cognition Impaired: Yes Ability to Follow Directions: Good Speech Pattern: Clear Hallucinations: None Delusions: Ideas of Reference Thought Process: Distracted and Slowed Thinking Thought Content: positive for [place] and positive for Poverty of Content Judgement: Fair Diagnostics Vital Signs (24Hr): Vital Signs - 24 hr 07/15/24 20:00 07/16/24 08:00 Temperature 97.9 F 96.8 F Pulse Rate 81 72 Respiratory Rate 18 18 Blood Pressure 134/94 H 129/84 Pulse Oximetry 98 99 Oxygen Delivery Method Room Air Room Air Labs 07/08/24 07:48 07/08/24 07:48 Medications Medications Current Medications Acetaminophen (Acetaminophen 325 Mg Tablet) 650 mg PO Q6H PRN PRN Reason: Headache/Pain Mild Scale (1-3) Last Admin: 07/15/24 04:25 Dose: 650 mg Al Hydroxide/Mg Hydroxide (Magnesium Hydrox/Alum Hydrox 30 Ml Oral.Susp) 30 ml PO Q6H PRN PRN Reason: Heartburn/Nausea Benztropine Mesylate (Benztropine Mesylate 1 Mg Tablet) 1 mg PO BID [facility] BEDS AT [facility] Last Admin: 07/16/24 08:22 Dose: 1 mg Cyanocobalamin (Cyanocobalamin (Vitamin B-12) 1,000 Mcg Tablet) 1,000 mcg PO DAILY [facility]S [facility]CLUDE 234 BEDS AT THE [facility] Last Admin: 07/16/24 08:22 Dose: 1,000 mcg Divalproex Sodium (Divalproex Sodium 250 Mg Tablet.) 250 mg PO BID@0800,1700 [facility]S [facility]CLUDE 234 BEDS AT [facility] Last Admin: 07/16/24 08:22 Dose: 250 mg Divalproex Sodium (Divalproex Sodium 500 Mg Tablet.) 500 mg PO BEDTIME COUNTS INCLUDE 234 BEDS AT THE [facility] Last Admin: 07/15/24 20:55 Dose: 500 mg Famotidine (Famotidine 20 Mg Tablet) 20 mg PO DAILY [facility]S INCLUDE 234 BEDS AT THE [facility] Last Admin: 07/16/24 08:22 Dose: 20 mg Furosemide (Furosemide 20 Mg Tablet) 20 mg PO DAILY [facility]S INCLUDE 234 BEDS AT [facility] Last Admin: 07/16/24 08:22 Dose: 20 mg Haloperidol (Haloperidol 5 Mg Tablet) 5 mg PO BID [facility]S [facility]CLUDE 234 BEDS AT [facility] Last Admin: 07/16/24 08:22 Dose: 5 mg Levothyroxine Sodium (Levothyroxine Sodium 112 Mcg Tablet) 112 mcg PO DAILY@0600 [facility]S [facility]CLUDE 234 BEDS AT [facility] Last Admin: 07/16/24 05:41 Dose: 112 mcg Lorazepam (Lorazepam 1 Mg Tablet) 1 mg PO Q6H PRN PRN Reason: anxiety/restlessness Last Admin: 07/15/24 20:54 Dose: 1 mg Magnesium Hydroxide (Milk Of Magnesia 30 Ml Oral.Susp) 30 ml PO DAILY PRN PRN Reason: Constipation Melatonin (Melatonin 3 Mg Tablet) 9 mg PO BEDTIME [facility]S [facility]CLUDE 234 BEDS AT [facility] Last Admin: 07/15/24 20:54 Dose: 9 mg Olanzapine (Olanzapine Odt 10 Mg Tab.Rapdis) 10 mg TRANSLINGU BID PRN PRN Reason: Psychosis Ondansetron HCl (Ondansetron Odt 4 Mg Tab.Rapdis) 4 mg TRANSLINGU Q8H PRN PRN Reason: Nausea and Vomiting Last Admin: 07/15/24 04:26 Dose: 4 mg Senna (Sennosides 8.6 Mg Tablet) 17.2 mg PO DAILY [facility]CLUDE 234 BEDS AT [facility] Last Admin: 07/16/24 08:22 Dose: 17.2 mg Trazodone HCl (Trazodone Hcl 50 Mg Tablet) 50 mg PO BEDTIME MRX1 PRN PRN Reason: Insomnia Last Admin: 07/15/24 20:55 Dose: 50 mg Allergies Allergies Allergy/AdvReac Type Severity Reaction Status Date / Time No Known Allergies Allergy Verified 06/30/24 18:11 Assessment & Plan Assessment & Plan (1) Schizoaffective disorder: Status: Acute Code(s): F25.9 - Schizoaffective disorder, unspecified Plan The patient is an elderly Irish male with a past history of schizoaffective disorder bipolar type who was brought from the community due to exacerbation of psychosis and inability to take care of himself. Apparently he was living in a filthy apartment with loud music very disruptive. He was initially admitted to Medicine and later on transferring to this facility for psychiatric stabilization. Plan 1. Gather collateral information. 2. Continue with Haldol as prescribed. 3. Continue with medical workout. 4. Reassessment with results. 5. On one-to-one observation. On July 02 we change the observation to 5 minute checks. 6. Physical therapy assessment for gait. PT suggested subacute rehab as discharge planning. 7. Depakote was increased to 250 mg p.o. b.i.d. and 500 mg at night July 08. His Depakote level on July 08 was 34.3. 8. Referral to subacute rehab. Reason for continued inpatient stay Substantial Risk for: inability to function, rapid decompensation and med/psych decompensation Time Spent With Patient Time: Total time managing care of this patient today __20__ minutes.
[2024-07-16 20:00] VITALS: BP 124/80; PULSE 90; RESP 18; TEMP 37.1; O2SAT 99
[2024-07-16] MEDS: Milk of Magnesia 30 ML ORAL.SUSP PO (20:15)
[2024-07-16] MEDS: Melatonin 3 MG TABLET 9 MG PO (20:15)
[2024-07-16] MEDS: Divalproex Sodium 500 MG TABLET.DR PO (20:15)
[2024-07-17] MEDS: Magnesium Hydrox/Alum Hydrox 30 ML ORAL.SUSP PO (03:02)
[2024-07-17] MEDS: Levothyroxine Sodium 112 MCG TABLET PO (05:30)
[2024-07-17] MEDS: Acetaminophen 325 MG TABLET 650 MG PO ×2 (06:38→20:23)
[2024-07-17 08:00] VITALS: BP 138/92; PULSE 97; RESP 18; TEMP 36.2; O2SAT 95
[2024-07-17 08:09] VITALS: BP 138/92
[2024-07-17] MEDS: Furosemide 20 MG TABLET PO (08:09)
[2024-07-17] MEDS: Sennosides 8.6 MG TABLET 17.2 MG PO (08:09)
[2024-07-17] MEDS: Cyanocobalamin (Vitamin B-12) 1,000 MCG TABLET 1000 MCG PO (08:09)
[2024-07-17] MEDS: Famotidine 20 MG TABLET PO (08:09)
[2024-07-17] MEDS: HaloperidoL 5 MG TABLET PO ×2 (08:10→20:24)
[2024-07-17] MEDS: Benztropine Mesylate 1 MG TABLET PO ×2 (08:10→20:22)
[2024-07-17] MEDS: Divalproex Sodium 250 MG TABLET.DR PO ×2 (08:10→16:30)
[2024-07-17 10:36] VITALS: BP 138/92
--- NOTE | 2024-07-17 12:16 | P.PNPSI_ITS ---
Subjective Subjective Date of Service: 07/17/24 Reason For Visit: Schizoaffective disorder, unspecified Subjective Notes: Conditional Voluntary Interim History: The nursing staff reported no changes in his mental status cooperative using his walker. He had been visible in the unit slept 7 hours. The long term care social worker reported that he will be discharged to subacute rehab. On interview the patient denies new symptoms, waiting for placement. Mental Status Exam Mental Status Exam Patient Appearance: Appropriate Patient Orientation: Person and Situation Level of Consciousness: Awake and Appropriate Patient Behavior: Guarded and Passive Mood Description: Calm Affect Description: Calm Patient Cognition Impaired: Yes Ability to Follow Directions: Good Speech Pattern: Clear Hallucinations: None Delusions: Ideas of Reference Thought Process: Distracted and Slowed Thinking Thought Content: positive for [place] and positive for Poverty of Content Judgement: Fair Diagnostics Vital Signs (24Hr): Vital Signs - 24 hr 07/16/24 20:00 07/17/24 08:00 07/17/24 08:09 Temperature 98.8 F 97.2 F Pulse Rate 90 97 Respiratory Rate 18 18 Blood Pressure 124/80 138/92 H 138/92 H Pulse Oximetry 99 95 Oxygen Delivery Method Room Air Room Air 07/17/24 10:36 Temperature Pulse Rate Respiratory Rate Blood Pressure 138/92 H Pulse Oximetry Oxygen Delivery Method BMI result Body Mass Index 33.9 Labs 07/08/24 07:48 07/08/24 07:48 Medications Medications Current Medications Acetaminophen (Acetaminophen 325 Mg Tablet) 650 mg PO Q6H PRN PRN Reason: Headache/Pain Mild Scale (1-3) Last Admin: 07/17/24 06:38 Dose: 650 mg Al Hydroxide/Mg Hydroxide (Magnesium Hydrox/Alum Hydrox 30 Ml Oral.Susp) 30 ml PO Q6H PRN PRN Reason: Heartburn/Nausea Last Admin: 07/17/24 03:02 Dose: 30 ml Benztropine Mesylate (Benztropine Mesylate 1 Mg Tablet) 1 mg PO BID [facility] Last Admin: 07/17/24 08:10 Dose: 1 mg Cyanocobalamin (Cyanocobalamin (Vitamin B-12) 1,000 Mcg Tablet) 1,000 mcg PO DAILY [facility] Last Admin: 07/17/24 08:09 Dose: 1,000 mcg Divalproex Sodium (Divalproex Sodium 250 Mg Tablet.) 250 mg PO BID@0800,1700 [facility] Last Admin: 07/17/24 08:10 Dose: 250 mg Divalproex Sodium (Divalproex Sodium 500 Mg Tablet.Dr) 500 mg PO BEDTIME [facility] Last Admin: 07/16/24 20:15 Dose: 500 mg Famotidine (Famotidine 20 Mg Tablet) 20 mg PO DAILY [facility] Last Admin: 07/17/24 08:09 Dose: 20 mg Furosemide (Furosemide 20 Mg Tablet) 20 mg PO DAILY [facility] Last Admin: 07/17/24 08:09 Dose: 20 mg Haloperidol (Haloperidol 5 Mg Tablet) 5 mg PO BID [facility] Last Admin: 07/17/24 08:10 Dose: 5 mg Levothyroxine Sodium (Levothyroxine Sodium 112 Mcg Tablet) 112 mcg PO DAILY@0600 [facility] Last Admin: 07/17/24 05:30 Dose: 112 mcg Lorazepam (Lorazepam 1 Mg Tablet) 1 mg PO Q6H PRN PRN Reason: anxiety/restlessness Last Admin: 07/15/24 20:54 Dose: 1 mg Magnesium Hydroxide (Milk Of Magnesia 30 Ml Oral.Susp) 30 ml PO DAILY PRN PRN Reason: Constipation Last Admin: 07/16/24 20:15 Dose: 30 ml Melatonin (Melatonin 3 Mg Tablet) 9 mg PO BEDTIME [facility] Last Admin: 07/16/24 20:15 Dose: 9 mg Olanzapine (Olanzapine Odt 10 Mg Tab.Rapdis) 10 mg TRANSLINGU BID PRN PRN Reason: Psychosis Ondansetron HCl (Ondansetron Odt 4 Mg Tab.Rapdis) 4 mg TRANSLINGU Q8H PRN PRN Reason: Nausea and Vomiting Last Admin: 07/15/24 04:26 Dose: 4 mg Senna (Sennosides 8.6 Mg Tablet) 17.2 mg PO DAILY [facility] Last Admin: 07/17/24 08:09 Dose: 17.2 mg Trazodone HCl (Trazodone Hcl 50 Mg Tablet) 50 mg PO BEDTIME MRX1 PRN PRN Reason: Insomnia Last Admin: 07/15/24 20:55 Dose: 50 mg Allergies Allergies Allergy/AdvReac Type Severity Reaction Status Date / Time No Known Allergies Allergy Verified 06/30/24 18:11 Assessment & Plan Assessment & Plan (1) Schizoaffective disorder: Status: Acute Code(s): F25.9 - Schizoaffective disorder, unspecified Plan The patient is an elderly [place] male with a past history of schizoaffective disorder bipolar type who was brought from the community due to exacerbation of psychosis and inability to take care of himself. Apparently he was living in a filthy apartment with loud music very disruptive. He was initially admitted to Medicine and later on transferring to this facility for psychiatric stabilization. Plan 1. Gather collateral information. 2. Continue with Haldol as prescribed. 3. Continue with medical workout. 4. Reassessment with results. 5. On one-to-one observation. On July 02 we change the observation to 5 minute checks. 6. Physical therapy assessment for gait. PT suggested subacute rehab as discharge planning. 7. Depakote was increased to 250 mg p.o. b.i.d. and 500 mg at night July 08. His Depakote level on July 08 was 34.3. 8. Referral to subacute rehab. Reason for continued inpatient stay Substantial Risk for: rapid decompensation and med/psych decompensation Time Spent With Patient Time: Total time managing care of this patient today __20__ minutes.
[2024-07-17 20:00] VITALS: BP 131/93; PULSE 78; RESP 18; TEMP 36.2; O2SAT 99
[2024-07-17] MEDS: Divalproex Sodium 500 MG TABLET.DR PO (20:24)
[2024-07-17] MEDS: traZODone HCL 50 MG TABLET PO (20:24)
[2024-07-17] MEDS: Melatonin 3 MG TABLET 9 MG PO (20:24)
[2024-07-18] MEDS: Acetaminophen 325 MG TABLET 650 MG PO ×2 (04:22→15:19)
[2024-07-18] MEDS: Levothyroxine Sodium 112 MCG TABLET PO (05:11)
--- NOTE | 2024-07-18 06:41 | HO.PSYCHPN ---
Subjective Subjective Date of Service: 07/18/24 Reason For Visit: Schizoaffective disorder, unspecified Subjective Notes: Conditional Voluntary Interim History: The nursing staff reported the patient has been cooperative with care, he uses his walker. He had been visible in the common areas. On interview the patient denies new symptoms, waiting for transfer to subacute rehab. Mental Status Exam Mental Status Exam Patient Appearance: Appropriate Patient Orientation: Person and Situation Level of Consciousness: Awake and Appropriate Patient Behavior: Guarded and Passive Mood Description: Calm Affect Description: Constricted Patient Cognition Impaired: Yes Ability to Follow Directions: Good Speech Pattern: Clear Hallucinations: None Delusions: Ideas of Reference Thought Process: Distracted and Slowed Thinking Thought Content: positive for [place] and positive for Poverty of Content Judgement: Fair Diagnostics Vital Signs (24Hr): Vital Signs - 24 hr 07/17/24 08:00 07/17/24 08:09 07/17/24 10:36 Temperature 97.2 F Pulse Rate 97 Respiratory Rate 18 Blood Pressure 138/92 H 138/92 H 138/92 H Pulse Oximetry 95 Oxygen Delivery Method Room Air 07/17/24 20:00 Temperature 97.1 F Pulse Rate 78 Respiratory Rate 18 Blood Pressure 131/93 H Pulse Oximetry 99 Oxygen Delivery Method Room Air BMI result Body Mass Index 33.9 Labs 07/08/24 07:48 07/08/24 07:48 Medications Medications Current Medications Acetaminophen (Acetaminophen 325 Mg Tablet) 650 mg PO Q6H PRN PRN Reason: Headache/Pain Mild Scale (1-3) Last Admin: 07/18/24 04:22 Dose: 650 mg Al Hydroxide/Mg Hydroxide (Magnesium Hydrox/Alum Hydrox 30 Ml Oral.Susp) 30 ml PO Q6H PRN PRN Reason: Heartburn/Nausea Last Admin: 07/17/24 03:02 Dose: 30 ml Benztropine Mesylate (Benztropine Mesylate 1 Mg Tablet) 1 mg PO BID [facility] Last Admin: 07/17/24 20:22 Dose: 1 mg Cyanocobalamin (Cyanocobalamin (Vitamin B-12) 1,000 Mcg Tablet) 1,000 mcg PO DAILY [facility] Last Admin: 07/17/24 08:09 Dose: 1,000 mcg Divalproex Sodium (Divalproex Sodium 250 Mg Tablet.Dr) 250 mg PO BID@0800,1700 [facility] Last Admin: 07/17/24 16:30 Dose: 250 mg Divalproex Sodium (Divalproex Sodium 500 Mg Tablet.Dr) 500 mg PO BEDTIME [facility] Last Admin: 07/17/24 20:24 Dose: 500 mg Famotidine (Famotidine 20 Mg Tablet) 20 mg PO DAILY [facility] Last Admin: 07/17/24 08:09 Dose: 20 mg Furosemide (Furosemide 20 Mg Tablet) 20 mg PO DAILY [facility] Last Admin: 07/17/24 08:09 Dose: 20 mg Haloperidol (Haloperidol 5 Mg Tablet) 5 mg PO BID [facility] Last Admin: 07/17/24 20:24 Dose: 5 mg Levothyroxine Sodium (Levothyroxine Sodium 112 Mcg Tablet) 112 mcg PO DAILY@0600 [facility] Last Admin: 07/18/24 05:11 Dose: 112 mcg Lorazepam (Lorazepam 1 Mg Tablet) 1 mg PO Q6H PRN PRN Reason: anxiety/restlessness Last Admin: 07/15/24 20:54 Dose: 1 mg Magnesium Hydroxide (Milk Of Magnesia 30 Ml Oral.Susp) 30 ml PO DAILY PRN PRN Reason: Constipation Last Admin: 07/16/24 20:15 Dose: 30 ml Melatonin (Melatonin 3 Mg Tablet) 9 mg PO BEDTIME [facility] Last Admin: 07/17/24 20:24 Dose: 9 mg Olanzapine (Olanzapine Odt 10 Mg Tab.Rapdis) 10 mg TRANSLINGU BID PRN PRN Reason: Psychosis Ondansetron HCl (Ondansetron Odt 4 Mg Tab.Rapdis) 4 mg TRANSLINGU Q8H PRN PRN Reason: Nausea and Vomiting Last Admin: 07/15/24 04:26 Dose: 4 mg Senna (Sennosides 8.6 Mg Tablet) 17.2 mg PO DAILY [facility] Last Admin: 07/17/24 08:09 Dose: 17.2 mg Trazodone HCl (Trazodone Hcl 50 Mg Tablet) 50 mg PO BEDTIME MRX1 PRN PRN Reason: Insomnia Last Admin: 07/17/24 20:24 Dose: 50 mg Allergies Allergies Allergy/AdvReac Type Severity Reaction Status Date / Time No Known Allergies Allergy Verified 06/30/24 18:11 Assessment & Plan Assessment & Plan (1) Schizoaffective disorder: Status: Acute Code(s): F25.9 - Schizoaffective disorder, unspecified Plan The patient is an elderly [place]ian male with a past history of schizoaffective disorder bipolar type who was brought from the community due to exacerbation of psychosis and inability to take care of himself. Apparently he was living in a filthy apartment with loud music very disruptive. He was initially admitted to Medicine and later on transferring to this facility for psychiatric stabilization. Plan 1. Gather collateral information. 2. Continue with Haldol as prescribed. 3. Continue with medical workout. 4. Reassessment with results. 5. On one-to-one observation. On July 02 we change the observation to 5 minute checks. 6. Physical therapy assessment for gait. PT suggested subacute rehab as discharge planning. 7. Depakote was increased to 250 mg p.o. b.i.d. and 500 mg at night July 08. His Depakote level on July 08 was 34.3. 8. Referral to subacute rehab. Reason for continued inpatient stay Substantial Risk for: inability to function, rapid decompensation and med/psych decompensation Time Spent With Patient Time: Total time managing care of this patient today _20___ minutes.
[2024-07-18 08:00] VITALS: BP 118/69; PULSE 82; RESP 18; TEMP 36.4; O2SAT 97
[2024-07-18 08:32] VITALS: BP 118/69
[2024-07-18] MEDS: Divalproex Sodium 250 MG TABLET.DR PO ×2 (08:32→17:05)
[2024-07-18] MEDS: Benztropine Mesylate 1 MG TABLET PO ×2 (08:32→20:54)
[2024-07-18] MEDS: Famotidine 20 MG TABLET PO (08:32)
[2024-07-18] MEDS: Furosemide 20 MG TABLET PO (08:32)
[2024-07-18] MEDS: HaloperidoL 5 MG TABLET PO ×2 (08:32→20:54)
[2024-07-18] MEDS: Cyanocobalamin (Vitamin B-12) 1,000 MCG TABLET 1000 MCG PO (08:33)
[2024-07-18] MEDS: Sennosides 8.6 MG TABLET 17.2 MG PO (08:33)
[2024-07-18 20:00] VITALS: BP 117/73; PULSE 98; RESP 18; TEMP 36.2; O2SAT 98
[2024-07-18] MEDS: Divalproex Sodium 500 MG TABLET.DR PO (20:54)
[2024-07-18] MEDS: Melatonin 3 MG TABLET 9 MG PO (20:54)
[2024-07-18] MEDS: traZODone HCL 50 MG TABLET PO (20:54)
[2024-07-19] MEDS: Acetaminophen 325 MG TABLET 650 MG PO ×2 (01:33→20:39)
[2024-07-19] MEDS: Levothyroxine Sodium 112 MCG TABLET PO (05:34)
--- NOTE | 2024-07-19 06:27 | HO.PSYCHPN ---
Subjective Subjective Date of Service: 07/19/24 Reason For Visit: Schizoaffective disorder, unspecified Subjective Notes: Conditional Voluntary Interim History: The nursing staff reported the patient had been pleasant cooperative visible in the unit. On interview the patient denies new symptoms, waiting for placement at subacute rehab. Mental Status Exam Mental Status Exam Patient Appearance: Appropriate Patient Orientation: Person and Situation Level of Consciousness: Awake and Appropriate Patient Behavior: Guarded and Passive Mood Description: Withdrawn Affect Description: Constricted Patient Cognition Impaired: Yes Ability to Follow Directions: Good Speech Pattern: Clear Hallucinations: None Delusions: Not Present Thought Process: Distracted and Slowed Thinking Thought Content: positive for [place] and positive for Poverty of Content Judgement: Fair Diagnostics Vital Signs (24Hr): Vital Signs - 24 hr 07/18/24 08:00 07/18/24 08:32 07/18/24 20:00 Temperature 97.5 F 97.1 F Pulse Rate 82 98 Respiratory Rate 18 18 Blood Pressure 118/69 118/69 117/73 Pulse Oximetry 97 98 Oxygen Delivery Method Room Air Room Air BMI result Body Mass Index 33.9 Labs 07/08/24 07:48 07/08/24 07:48 Medications Medications Current Medications Acetaminophen (Acetaminophen 325 Mg Tablet) 650 mg PO Q6H PRN PRN Reason: Headache/Pain Mild Scale (1-3) Last Admin: 07/19/24 01:33 Dose: 650 mg Al Hydroxide/Mg Hydroxide (Magnesium Hydrox/Alum Hydrox 30 Ml Oral.Susp) 30 ml PO Q6H PRN PRN Reason: Heartburn/Nausea Last Admin: 07/17/24 03:02 Dose: 30 ml Benztropine Mesylate (Benztropine Mesylate 1 Mg Tablet) 1 mg PO BID [facility] Last Admin: 07/18/24 20:54 Dose: 1 mg Cyanocobalamin (Cyanocobalamin (Vitamin B-12) 1,000 Mcg Tablet) 1,000 mcg PO DAILY [facility] Last Admin: 07/18/24 08:33 Dose: 1,000 mcg Divalproex Sodium (Divalproex Sodium 250 Mg Tablet.) 250 mg PO BID@0800,1700 [facility] Last Admin: 07/18/24 17:05 Dose: 250 mg Divalproex Sodium (Divalproex Sodium 500 Mg Tablet.) 500 mg PO BEDTIME [facility] Last Admin: 07/18/24 20:54 Dose: 500 mg Famotidine (Famotidine 20 Mg Tablet) 20 mg PO DAILY [facility] Last Admin: 07/18/24 08:32 Dose: 20 mg Furosemide (Furosemide 20 Mg Tablet) 20 mg PO DAILY [facility] Last Admin: 07/18/24 08:32 Dose: 20 mg Haloperidol (Haloperidol 5 Mg Tablet) 5 mg PO BID [facility] Last Admin: 07/18/24 20:54 Dose: 5 mg Levothyroxine Sodium (Levothyroxine Sodium 112 Mcg Tablet) 112 mcg PO DAILY@0600 [facility] Last Admin: 07/19/24 05:34 Dose: 112 mcg Lorazepam (Lorazepam 1 Mg Tablet) 1 mg PO Q6H PRN PRN Reason: anxiety/restlessness Last Admin: 07/15/24 20:54 Dose: 1 mg Magnesium Hydroxide (Milk Of Magnesia 30 Ml Oral.Susp) 30 ml PO DAILY PRN PRN Reason: Constipation Last Admin: 07/16/24 20:15 Dose: 30 ml Melatonin (Melatonin 3 Mg Tablet) 9 mg PO BEDTIME [facility] Last Admin: 07/18/24 20:54 Dose: 9 mg Olanzapine (Olanzapine Odt 10 Mg Tab.Rapdis) 10 mg TRANSLINGU BID PRN PRN Reason: Psychosis Ondansetron HCl (Ondansetron Odt 4 Mg Tab.Rapdis) 4 mg TRANSLINGU Q8H PRN PRN Reason: Nausea and Vomiting Last Admin: 07/15/24 04:26 Dose: 4 mg Senna (Sennosides 8.6 Mg Tablet) 17.2 mg PO DAILY [facility] Last Admin: 07/18/24 08:33 Dose: 17.2 mg Trazodone HCl (Trazodone Hcl 50 Mg Tablet) 50 mg PO BEDTIME MRX1 PRN PRN Reason: Insomnia Last Admin: 07/18/24 20:54 Dose: 50 mg Allergies Allergies Allergy/AdvReac Type Severity Reaction Status Date / Time No Known Allergies Allergy Verified 06/30/24 18:11 Assessment & Plan Assessment & Plan (1) Schizoaffective disorder: Status: Acute Code(s): F25.9 - Schizoaffective disorder, unspecified Plan The patient is an elderly Filipino male with a past history of schizoaffective disorder bipolar type who was brought from the community due to exacerbation of psychosis and inability to take care of himself. Apparently he was living in a filthy apartment with loud music very disruptive. He was initially admitted to Medicine and later on transferring to this facility for psychiatric stabilization. Plan 1. Gather collateral information. 2. Continue with Haldol as prescribed. 3. Continue with medical workout. 4. Reassessment with results. 5. On one-to-one observation. On July 02 we change the observation to 5 minute checks. 6. Physical therapy assessment for gait. PT suggested subacute rehab as discharge planning. 7. Depakote was increased to 250 mg p.o. b.i.d. and 500 mg at night July 08. His Depakote level on July 08 was 34.3. 8. Referral to subacute rehab. Reason for continued inpatient stay Substantial Risk for: inability to function, rapid decompensation and med/psych decompensation Time Spent With Patient Time: Total time managing care of this patient today __20__ minutes.
[2024-07-19 08:24] VITALS: BP 135/77; PULSE 85; RESP 14; TEMP 36.8; O2SAT 97
[2024-07-19] MEDS: Divalproex Sodium 250 MG TABLET.DR PO ×2 (08:31→16:36)
[2024-07-19] MEDS: Sennosides 8.6 MG TABLET 17.2 MG PO (08:31)
[2024-07-19] MEDS: Benztropine Mesylate 1 MG TABLET PO ×2 (08:32→20:38)
[2024-07-19] MEDS: Famotidine 20 MG TABLET PO (08:32)
[2024-07-19] MEDS: Cyanocobalamin (Vitamin B-12) 1,000 MCG TABLET 1000 MCG PO (08:32)
[2024-07-19] MEDS: Furosemide 20 MG TABLET PO (08:32)
[2024-07-19] MEDS: HaloperidoL 5 MG TABLET PO ×2 (08:32→20:39)
[2024-07-19 20:00] VITALS: BP 126/78; PULSE 78; RESP 17; TEMP 36.5; O2SAT 97
[2024-07-19] MEDS: Divalproex Sodium 500 MG TABLET.DR PO (20:38)
[2024-07-19] MEDS: traZODone HCL 50 MG TABLET PO (20:39)
[2024-07-19] MEDS: Melatonin 3 MG TABLET 9 MG PO (20:39)
[2024-07-19] MEDS: LORazepam 1 MG TABLET PO (20:40)
[2024-07-20] MEDS: Levothyroxine Sodium 112 MCG TABLET PO (06:15)
[2024-07-20 08:00] VITALS: BP 112/74; PULSE 105; RESP 16; TEMP 36.9; O2SAT 99
[2024-07-20] MEDS: Sennosides 8.6 MG TABLET 17.2 MG PO (08:37)
[2024-07-20] MEDS: Benztropine Mesylate 1 MG TABLET PO ×2 (08:38→20:03)
[2024-07-20] MEDS: Cyanocobalamin (Vitamin B-12) 1,000 MCG TABLET 1000 MCG PO (08:38)
[2024-07-20] MEDS: Divalproex Sodium 250 MG TABLET.DR PO ×2 (08:39→16:27)
[2024-07-20] MEDS: HaloperidoL 5 MG TABLET PO ×2 (08:39→20:03)
[2024-07-20] MEDS: Famotidine 20 MG TABLET PO ×3 (08:39→15:25)
[2024-07-20 08:40] VITALS: BP 112/74
[2024-07-20] MEDS: Furosemide 20 MG TABLET PO (08:40)
--- NOTE | 2024-07-20 11:30 | HO.PSYCHPN ---
Subjective Subjective Date of Service: 07/20/24 Reason For Visit: Schizoaffective disorder, unspecified Subjective Notes: Conditional Voluntary Interim History: The nursing staff reported the patient had been pleasant cooperative, slept 7 hours. The executive secretary social welfare reported that he had been referred to subacute rehab and he needs to have paperwork from medicate. On interview the patient denies new symptoms, waiting for placement Mental Status Exam Mental Status Exam Patient Appearance: Appropriate Patient Orientation: Person and Situation Level of Consciousness: Awake and Appropriate Patient Behavior: Guarded and Passive Mood Description: Withdrawn Affect Description: Constricted Patient Cognition Impaired: Yes Ability to Follow Directions: Good Speech Pattern: Clear Hallucinations: None Delusions: Not Present Thought Process: Distracted and Slowed Thinking Thought Content: positive for [place] and positive for Poverty of Content Judgement: Fair Diagnostics Vital Signs (24Hr): Vital Signs - 24 hr 07/19/24 20:00 07/20/24 08:40 Temperature 97.7 F Pulse Rate 78 Respiratory Rate 17 Blood Pressure 126/78 112/74 Pulse Oximetry 97 Oxygen Delivery Method Room Air BMI result Body Mass Index 33.9 Labs 07/08/24 07:48 07/08/24 07:48 Medications Medications Current Medications Acetaminophen (Acetaminophen 325 Mg Tablet) 650 mg PO Q6H PRN PRN Reason: Headache/Pain Mild Scale (1-3) Last Admin: 07/19/24 20:39 Dose: 650 mg Al Hydroxide/Mg Hydroxide (Magnesium Hydrox/Alum Hydrox 30 Ml Oral.Susp) 30 ml PO Q6H PRN PRN Reason: Heartburn/Nausea Last Admin: 07/17/24 03:02 Dose: 30 ml Benztropine Mesylate (Benztropine Mesylate 1 Mg Tablet) 1 mg PO BID [facility] Last Admin: 07/20/24 08:38 Dose: 1 mg Cyanocobalamin (Cyanocobalamin (Vitamin B-12) 1,000 Mcg Tablet) 1,000 mcg PO DAILY [facility] Last Admin: 07/20/24 08:38 Dose: 1,000 mcg Divalproex Sodium (Divalproex Sodium 250 Mg Tablet.) 250 mg PO BID@0800,1700 [facility] Last Admin: 07/20/24 08:39 Dose: 250 mg Divalproex Sodium (Divalproex Sodium 500 Mg Tablet.) 500 mg PO BEDTIME [facility] Last Admin: 07/19/24 20:38 Dose: 500 mg Famotidine (Famotidine 20 Mg Tablet) 20 mg PO DAILY [facility] Last Admin: 07/20/24 08:39 Dose: 20 mg Furosemide (Furosemide 20 Mg Tablet) 20 mg PO DAILY [facility] Last Admin: 07/20/24 08:40 Dose: 20 mg Haloperidol (Haloperidol 5 Mg Tablet) 5 mg PO BID [facility] Last Admin: 07/20/24 08:39 Dose: 5 mg Levothyroxine Sodium (Levothyroxine Sodium 112 Mcg Tablet) 112 mcg PO DAILY@0600 [facility] Last Admin: 07/20/24 06:15 Dose: 112 mcg Lorazepam (Lorazepam 1 Mg Tablet) 1 mg PO Q6H PRN PRN Reason: anxiety/restlessness Last Admin: 07/19/24 20:40 Dose: 1 mg Magnesium Hydroxide (Milk Of Magnesia 30 Ml Oral.Susp) 30 ml PO DAILY PRN PRN Reason: Constipation Last Admin: 07/16/24 20:15 Dose: 30 ml Melatonin (Melatonin 3 Mg Tablet) 9 mg PO BEDTIME [facility] Last Admin: 07/19/24 20:39 Dose: 9 mg Olanzapine (Olanzapine Odt 10 Mg Tab.Rapdis) 10 mg TRANSLINGU BID PRN PRN Reason: Psychosis Ondansetron HCl (Ondansetron Odt 4 Mg Tab.Rapdis) 4 mg TRANSLINGU Q8H PRN PRN Reason: Nausea and Vomiting Last Admin: 07/15/24 04:26 Dose: 4 mg Senna (Sennosides 8.6 Mg Tablet) 17.2 mg PO DAILY [facility] Last Admin: 07/20/24 08:37 Dose: 17.2 mg Trazodone HCl (Trazodone Hcl 50 Mg Tablet) 50 mg PO BEDTIME MRX1 PRN PRN Reason: Insomnia Last Admin: 07/19/24 20:39 Dose: 50 mg Allergies Allergies Allergy/AdvReac Type Severity Reaction Status Date / Time No Known Allergies Allergy Verified 06/30/24 18:11 Assessment & Plan Assessment & Plan (1) Schizoaffective disorder: Status: Acute Code(s): F25.9 - Schizoaffective disorder, unspecified Plan The patient is an elderly Indian male with a past history of schizoaffective disorder bipolar type who was brought from the community due to exacerbation of psychosis and inability to take care of himself. Apparently he was living in a filthy apartment with loud music very disruptive. He was initially admitted to Medicine and later on transferring to this facility for psychiatric stabilization. Plan 1. Gather collateral information. 2. Continue with Haldol as prescribed. 3. Continue with medical workout. 4. Reassessment with results. 5. On one-to-one observation. On July 02 we change the observation to 5 minute checks. 6. Physical therapy assessment for gait. PT suggested subacute rehab as discharge planning. 7. Depakote was increased to 250 mg p.o. b.i.d. and 500 mg at night July 08. His Depakote level on July 08 was 34.3. 8. Referral to subacute rehab. Reason for continued inpatient stay Substantial Risk for: inability to function, rapid decompensation and med/psych decompensation Time Spent With Patient Time: Total time managing care of this patient today __20__ minutes.
[2024-07-20] MEDS: LORazepam 1 MG TABLET PO (11:35)
[2024-07-20 14:51] VITALS: BP 112/74
[2024-07-20 20:00] VITALS: BP 117/75; PULSE 80; TEMP 36.4; O2SAT 99
[2024-07-20] MEDS: Melatonin 3 MG TABLET 9 MG PO (20:03)
[2024-07-20] MEDS: Divalproex Sodium 500 MG TABLET.DR PO (20:03)
[2024-07-20] MEDS: Acetaminophen 325 MG TABLET 650 MG PO (20:04)
[2024-07-20] MEDS: traZODone HCL 50 MG TABLET PO (20:04)
[2024-07-20] MEDS: Magnesium Hydrox/Alum Hydrox 30 ML ORAL.SUSP PO (20:09)
[2024-07-21] MEDS: Levothyroxine Sodium 112 MCG TABLET PO (05:47)
--- NOTE | 2024-07-21 08:45 | HO.PSYCHPN ---
Subjective Subjective Date of Service: 07/21/24 Reason For Visit: Schizoaffective disorder, unspecified Subjective Notes: Conditional Voluntary Interim History: Pt slept through the night. He presents as very tearful, stating that yesterday it was his birthday and no one remembered it. He asks this literary writer to pray for him. He denies SI/HI. No overt psychosis or delusions. He is taking medications as prescribed. He has parkinsonism s/s- resting tremor on both hands more pronounced on right hand. He reports no prior dx or tx, but interested in seeing neurology for it. Mental Status Exam Mental Status Exam Narrative: Appearance: wearing hospital gown, tearful in NAD Behavior: cooperative Psychomotor: resting bilat UE tremor, pronounced when standing up. Speech: mumbles at times, regular rate/rhythm/volume, spontaneous TP: disorganized at times TC: feeling sad because no one remembered his BD Mood: sad Affect: congruent, tearful SI: denies HI: denies VH/AH: no overt signs Delusions: none Insight/judgment: fair x 2. Memory/cog: alert oriented x 3. Diagnostics Vital Signs (24Hr): Vital Signs - 24 hr 07/20/24 14:51 07/20/24 20:00 Temperature 97.5 F Pulse Rate 80 Blood Pressure 112/74 117/75 Pulse Oximetry 99 Oxygen Delivery Method Room Air BMI result Body Mass Index 33.9 Labs 07/08/24 07:48 07/08/24 07:48 Medications Medications Current Medications Acetaminophen (Acetaminophen 325 Mg Tablet) 650 mg PO Q6H PRN PRN Reason: Headache/Pain Mild Scale (1-3) Last Admin: 07/20/24 20:04 Dose: 650 mg Al Hydroxide/Mg Hydroxide (Magnesium Hydrox/Alum Hydrox 30 Ml Oral.Susp) 30 ml PO Q6H PRN PRN Reason: Heartburn/Nausea Last Admin: 07/20/24 20:09 Dose: 30 ml Benztropine Mesylate (Benztropine Mesylate 1 Mg Tablet) 1 mg PO BID [facility] Last Admin: 07/20/24 20:03 Dose: 1 mg Cyanocobalamin (Cyanocobalamin (Vitamin B-12) 1,000 Mcg Tablet) 1,000 mcg PO DAILY [facility] Last Admin: 07/20/24 08:38 Dose: 1,000 mcg Divalproex Sodium (Divalproex Sodium 250 Mg Tablet.) 250 mg PO BID@0800,1700 [facility] Last Admin: 07/20/24 16:27 Dose: 250 mg Divalproex Sodium (Divalproex Sodium 500 Mg Tablet.Dr) 500 mg PO BEDTIME [facility] Last Admin: 07/20/24 20:03 Dose: 500 mg Famotidine (Famotidine 20 Mg Tablet) 20 mg PO DAILY [facility] Last Admin: 07/20/24 15:25 Dose: 20 mg Furosemide (Furosemide 20 Mg Tablet) 20 mg PO DAILY [facility] Last Admin: 07/20/24 08:40 Dose: 20 mg Haloperidol (Haloperidol 5 Mg Tablet) 5 mg PO BID [facility] Last Admin: 07/20/24 20:03 Dose: 5 mg Levothyroxine Sodium (Levothyroxine Sodium 112 Mcg Tablet) 112 mcg PO DAILY@0600 [facility] Last Admin: 07/21/24 05:47 Dose: 112 mcg Lorazepam (Lorazepam 1 Mg Tablet) 1 mg PO Q6H PRN PRN Reason: anxiety/restlessness Last Admin: 07/20/24 11:35 Dose: 1 mg Magnesium Hydroxide (Milk Of Magnesia 30 Ml Oral.Susp) 30 ml PO DAILY PRN PRN Reason: Constipation Last Admin: 07/16/24 20:15 Dose: 30 ml Melatonin (Melatonin 3 Mg Tablet) 9 mg PO BEDTIME [facility] Last Admin: 07/20/24 20:03 Dose: 9 mg Olanzapine (Olanzapine Odt 10 Mg Tab.Rapdis) 10 mg TRANSLINGU BID PRN PRN Reason: Psychosis Ondansetron HCl (Ondansetron Odt 4 Mg Tab.Rapdis) 4 mg TRANSLINGU Q8H PRN PRN Reason: Nausea and Vomiting Last Admin: 07/15/24 04:26 Dose: 4 mg Senna (Sennosides 8.6 Mg Tablet) 17.2 mg PO DAILY [facility] Last Admin: 07/20/24 08:37 Dose: 17.2 mg Trazodone HCl (Trazodone Hcl 50 Mg Tablet) 50 mg PO BEDTIME MRX1 PRN PRN Reason: Insomnia Last Admin: 07/20/24 20:04 Dose: 50 mg Allergies Allergies Allergy/AdvReac Type Severity Reaction Status Date / Time No Known Allergies Allergy Verified 06/30/24 18:11 Assessment & Plan Assessment & Plan (1) Schizoaffective disorder: Status: Acute Code(s): F25.9 - Schizoaffective disorder, unspecified Plan The patient is an elderly Surinamese male with a past history of schizoaffective disorder bipolar type who was brought from the community due to exacerbation of psychosis and inability to take care of himself. Apparently he was living in a filthy apartment with loud music very disruptive. He was initially admitted to Medicine and later on transferring to this facility for psychiatric stabilization. Plan 07/21 continue tx. Reason for continued inpatient stay Substantial Risk for: inability to function Time Spent With Patient Time: Total time managing care of this patient today ____ minutes.
[2024-07-21 08:54] VITALS: BP 127/77; PULSE 85; RESP 18; TEMP 36.3; O2SAT 99
[2024-07-21] MEDS: Acetaminophen 325 MG TABLET 650 MG PO (09:10)
[2024-07-21] MEDS: Sennosides 8.6 MG TABLET 17.2 MG PO (09:12)
[2024-07-21] MEDS: Famotidine 20 MG TABLET PO (09:13)
[2024-07-21] MEDS: Cyanocobalamin (Vitamin B-12) 1,000 MCG TABLET 1000 MCG PO (09:14)
[2024-07-21] MEDS: Benztropine Mesylate 1 MG TABLET PO ×2 (09:14→21:15)
[2024-07-21] MEDS: HaloperidoL 5 MG TABLET PO ×2 (09:14→21:15)
[2024-07-21] MEDS: Furosemide 20 MG TABLET PO (09:14)
[2024-07-21] MEDS: LORazepam 1 MG TABLET PO (09:14)
[2024-07-21] MEDS: Divalproex Sodium 250 MG TABLET.DR PO ×2 (09:14→17:09)
[2024-07-21 10:47] VITALS: BP 127/77; PULSE 85; O2SAT 99
--- NOTE | 2024-07-21 11:12 | PC.NURSE ---
Andrea Lange, [facility] case finisher from [place], phone number [phone].
[2024-07-21 20:00] VITALS: BP 142/90; PULSE 98; RESP 20; TEMP 37.1; O2SAT 100
[2024-07-21] MEDS: Melatonin 3 MG TABLET 9 MG PO (21:14)
[2024-07-21] MEDS: Divalproex Sodium 500 MG TABLET.DR PO (21:15)
[2024-07-21] MEDS: traZODone HCL 50 MG TABLET PO (21:16)
[2024-07-22] MEDS: Levothyroxine Sodium 112 MCG TABLET PO (05:58)
[2024-07-22 08:00] VITALS: BP 134/84; PULSE 79; RESP 18; TEMP 36.2; O2SAT 96
[2024-07-22] MEDS: HaloperidoL 5 MG TABLET PO ×2 (08:17→20:44)
[2024-07-22] MEDS: Famotidine 20 MG TABLET PO (08:18)
[2024-07-22] MEDS: Benztropine Mesylate 1 MG TABLET PO ×2 (08:18→20:44)
[2024-07-22] MEDS: Cyanocobalamin (Vitamin B-12) 1,000 MCG TABLET 1000 MCG PO (08:18)
[2024-07-22] MEDS: Divalproex Sodium 250 MG TABLET.DR PO ×2 (08:18→16:35)
[2024-07-22] MEDS: Furosemide 20 MG TABLET PO (08:18)
[2024-07-22] MEDS: Sennosides 8.6 MG TABLET 17.2 MG PO (08:18)
--- NOTE | 2024-07-22 11:40 | P.PNPSI_ITS ---
Subjective Subjective Date of Service: 07/22/24 Reason For Visit: Schizoaffective disorder, unspecified Subjective Notes: Conditional Voluntary Interim History: Pt slept most of the night. He reports leg pain, difficulty walking due to parkinsonism. He reports his mood is better, than yesterday when he was very tearful thinking about his birthday and fact that he had no one to celebrate with. He reports praying gives him comfort. No overt SI or HI. No overt psychosis or delusions. Will place consult to neurology re: parkinson's. Medication Compliance: Yes Side effects from medications: No Mental Status Exam Mental Status Exam Narrative: Appearance: wearing hospital gown, in NAD Behavior: cooperative Psychomotor: resting bilat UE tremor, pronounced when standing up. Speech: mumbles at times, regular rate/rhythm/volume, spontaneous TP: disorganized at times TC: feeling sad because no one remembered his BD Mood: better Affect: congruent, brighter SI: denies HI: denies VH/AH: no overt signs Delusions: none Insight/judgment: fair x 2. Memory/cog: alert oriented x 3. Diagnostics Vital Signs (24Hr): Vital Signs - 24 hr 07/21/24 20:00 07/22/24 08:00 Temperature 98.8 F 97.1 F Pulse Rate 98 79 Respiratory Rate 20 18 Blood Pressure 142/90 H 134/84 Pulse Oximetry 100 96 Oxygen Delivery Method Room Air Room Air BMI result Body Mass Index 33.9 Labs 07/08/24 07:48 07/08/24 07:48 Medications Medications Current Medications Acetaminophen (Acetaminophen 325 Mg Tablet) 650 mg PO Q6H PRN PRN Reason: Headache/Pain Mild Scale (1-3) Last Admin: 07/21/24 09:10 Dose: 650 mg Al Hydroxide/Mg Hydroxide (Magnesium Hydrox/Alum Hydrox 30 Ml Oral.Susp) 30 ml PO Q6H PRN PRN Reason: Heartburn/Nausea Last Admin: 07/20/24 20:09 Dose: 30 ml Benztropine Mesylate (Benztropine Mesylate 1 Mg Tablet) 1 mg PO BID [facility] Last Admin: 07/22/24 08:18 Dose: 1 mg Cyanocobalamin (Cyanocobalamin (Vitamin B-12) 1,000 Mcg Tablet) 1,000 mcg PO DAILY [facility] Last Admin: 07/22/24 08:18 Dose: 1,000 mcg Divalproex Sodium (Divalproex Sodium 250 Mg Tablet.Dr) 250 mg PO BID@0800,1700 [facility] Last Admin: 07/22/24 08:18 Dose: 250 mg Divalproex Sodium (Divalproex Sodium 500 Mg Tablet.Dr) 500 mg PO BEDTIME [facility] Last Admin: 07/21/24 21:15 Dose: 500 mg Famotidine (Famotidine 20 Mg Tablet) 20 mg PO DAILY [facility] Last Admin: 07/22/24 08:18 Dose: 20 mg Furosemide (Furosemide 20 Mg Tablet) 20 mg PO DAILY [facility] Last Admin: 07/22/24 08:18 Dose: 20 mg Haloperidol (Haloperidol 5 Mg Tablet) 5 mg PO BID [facility] Last Admin: 07/22/24 08:17 Dose: 5 mg Levothyroxine Sodium (Levothyroxine Sodium 112 Mcg Tablet) 112 mcg PO DAILY@0600 [facility] Last Admin: 07/22/24 05:58 Dose: 112 mcg Lorazepam (Lorazepam 1 Mg Tablet) 1 mg PO Q6H PRN PRN Reason: Anxiety Magnesium Hydroxide (Milk Of Magnesia 30 Ml Oral.Susp) 30 ml PO DAILY PRN PRN Reason: Constipation Last Admin: 07/16/24 20:15 Dose: 30 ml Melatonin (Melatonin 3 Mg Tablet) 9 mg PO BEDTIME [facility] Last Admin: 07/21/24 21:14 Dose: 9 mg Olanzapine (Olanzapine Odt 10 Mg Tab.Rapdis) 10 mg TRANSLINGU BID PRN PRN Reason: Psychosis Ondansetron HCl (Ondansetron Odt 4 Mg Tab.Rapdis) 4 mg TRANSLINGU Q8H PRN PRN Reason: Nausea and Vomiting Last Admin: 07/15/24 04:26 Dose: 4 mg Senna (Sennosides 8.6 Mg Tablet) 17.2 mg PO DAILY [facility] Last Admin: 07/22/24 08:18 Dose: 17.2 mg Trazodone HCl (Trazodone Hcl 50 Mg Tablet) 50 mg PO BEDTIME MRX1 PRN PRN Reason: Insomnia Last Admin: 07/21/24 21:16 Dose: 50 mg Allergies Allergies Allergy/AdvReac Type Severity Reaction Status Date / Time No Known Allergies Allergy Verified 06/30/24 18:11 Assessment & Plan Assessment & Plan (1) Schizoaffective disorder: Status: Acute Code(s): F25.9 - Schizoaffective disorder, unspecified Plan The patient is an elderly [place]auruan male with a past history of schizoaffective disorder bipolar type who was brought from the community due to exacerbation of psychosis and inability to take care of himself. Apparently he was living in a filthy apartment with loud music very disruptive. He was initially admitted to Medicine and later on transferring to this facility for psychiatric stabilization. Plan 07/21 continue tx. 07/22 consult to neurology re: parkinson's Reason for continued inpatient stay Substantial Risk for: inability to function Time Spent With Patient Time: Total time managing care of this patient today ____ minutes.
[2024-07-22 20:00] VITALS: BP 135/90; PULSE 93; RESP 16; TEMP 36.3; O2SAT 95
[2024-07-22] MEDS: Melatonin 3 MG TABLET 9 MG PO (20:43)
[2024-07-22] MEDS: Divalproex Sodium 500 MG TABLET.DR PO (20:44)
[2024-07-22] MEDS: traZODone HCL 50 MG TABLET PO (20:45)
[2024-07-22] MEDS: Acetaminophen 325 MG TABLET 650 MG PO (20:52)
[2024-07-23] MEDS: Levothyroxine Sodium 112 MCG TABLET PO (05:48)
[2024-07-23] MEDS: Benztropine Mesylate 1 MG TABLET PO ×2 (08:43→20:22)
[2024-07-23] MEDS: Sennosides 8.6 MG TABLET 17.2 MG PO (08:43)
[2024-07-23] MEDS: Divalproex Sodium 250 MG TABLET.DR PO ×2 (08:44→17:16)
[2024-07-23] MEDS: HaloperidoL 5 MG TABLET PO ×2 (08:44→20:22)
[2024-07-23] MEDS: Cyanocobalamin (Vitamin B-12) 1,000 MCG TABLET 1000 MCG PO (08:44)
[2024-07-23 08:46] VITALS: BP 128/78; PULSE 88; RESP 18; TEMP 36.5; O2SAT 96
[2024-07-23] MEDS: Furosemide 20 MG TABLET PO (08:47)
[2024-07-23] MEDS: LORazepam 1 MG TABLET PO (09:52)
[2024-07-23] MEDS: Acetaminophen 325 MG TABLET 650 MG PO (09:52)
[2024-07-23 11:30] VITALS: BMI 33.9
--- NOTE | 2024-07-23 12:36 | P.CNNE_ITS ---
History of Present Illness Data of Consult Service Date: 07/23/24 Primary Care Provider: None Physician HPI Reason for consult: Parkinson's 69 years old [place] [facility] with medical records not available at this time was brought to hospital in a disheveled state not able to take care of himself with underlying history probably of psychotic disorder. Now he was doing much better and was noted to have Parkinson's type symptoms and this consultation was requested. Review of Systems 2 Review of Systems: No history of head trauma. No recent cold or flu-like illness PMFSH Past Medical History Medical History GERD (gastroesophageal reflux disease) Hypothyroidism Social History Social History Household Members: None Housing: Apartment Do you presently have visiting nurse or other home services: Yes Patient Tobacco Use Status: Never used Tobacco Use of substances other than those prescribed or required for medical reasons: No Currently Displaying Signs/Symptoms of Drug Intoxication Withdrawal: No Have you been hit, kicked, punched, or otherwise hurt by someone within the past year? If so, by whom?: No Do you feel safe in your current relationship?: No Current Relationship Spiritual Healthcare Practices: baptism Taoist Healthcare Practices: baptism Cultural Healthcare Practices: no Advance Directives: No Advance Directives Information Provided: No Do you have thoughts of harming others: None Do you have a plan to hurt others: No Plan Recently lost weight without trying: Yes How much weight loss: Unsure Nutrition Risks: No Nutritional Risk Poor oral hygiene: Yes service: No Sexual orientation: Straight/Heterosexual Meds Allergies Allergy/AdvReac Type Severity Reaction Status Date / Time No Known Allergies Allergy Verified 06/30/24 18:11 Active Medications: Current Medications Acetaminophen (Acetaminophen 325 Mg Tablet) 650 mg PO Q6H PRN PRN Reason: Headache/Pain Mild Scale (1-3) Last Admin: 07/23/24 09:52 Dose: 650 mg Al Hydroxide/Mg Hydroxide (Magnesium Hydrox/Alum Hydrox 30 Ml Oral.Susp) 30 ml PO Q6H PRN PRN Reason: Heartburn/Nausea Last Admin: 07/20/24 20:09 Dose: 30 ml Benztropine Mesylate (Benztropine Mesylate 1 Mg Tablet) 1 mg PO BID [facility]Y Last Admin: 07/23/24 08:43 Dose: 1 mg Cyanocobalamin (Cyanocobalamin (Vitamin B-12) 1,000 Mcg Tablet) 1,000 mcg PO DAILY [facility] Last Admin: 07/23/24 08:44 Dose: 1,000 mcg Divalproex Sodium (Divalproex Sodium 250 Mg Tablet.Dr) 250 mg PO BID@0800,1700 [facility] Last Admin: 07/23/24 08:44 Dose: 250 mg Divalproex Sodium (Divalproex Sodium 500 Mg Tablet.Dr) 500 mg PO BEDTIME [facility] Last Admin: 07/22/24 20:44 Dose: 500 mg Famotidine (Famotidine 20 Mg Tablet) 20 mg PO DAILY [facility] Last Admin: 07/22/24 08:18 Dose: 20 mg Furosemide (Furosemide 20 Mg Tablet) 20 mg PO DAILY [facility] Last Admin: 07/23/24 08:47 Dose: 20 mg Haloperidol (Haloperidol 5 Mg Tablet) 5 mg PO BID [facility] Last Admin: 07/23/24 08:44 Dose: 5 mg Levothyroxine Sodium (Levothyroxine Sodium 112 Mcg Tablet) 112 mcg PO DAILY@0600 [facility] Last Admin: 07/23/24 05:48 Dose: 112 mcg Lorazepam (Lorazepam 1 Mg Tablet) 1 mg PO Q6H PRN PRN Reason: Anxiety Last Admin: 07/23/24 09:52 Dose: 1 mg Magnesium Hydroxide (Milk Of Magnesia 30 Ml Oral.Susp) 30 ml PO DAILY PRN PRN Reason: Constipation Last Admin: 07/16/24 20:15 Dose: 30 ml Melatonin (Melatonin 3 Mg Tablet) 9 mg PO BEDTIME [facility] Last Admin: 07/22/24 20:43 Dose: 9 mg Olanzapine (Olanzapine Odt 10 Mg Tab.Rapdis) 10 mg TRANSLINGU BID PRN PRN Reason: Psychosis Ondansetron HCl (Ondansetron Odt 4 Mg Tab.Rapdis) 4 mg TRANSLINGU Q8H PRN PRN Reason: Nausea and Vomiting Last Admin: 07/15/24 04:26 Dose: 4 mg Senna (Sennosides 8.6 Mg Tablet) 17.2 mg PO DAILY [facility] Last Admin: 07/23/24 08:43 Dose: 17.2 mg Trazodone HCl (Trazodone Hcl 50 Mg Tablet) 50 mg PO BEDTIME MRX1 PRN PRN Reason: Insomnia Last Admin: 07/22/24 20:45 Dose: 50 mg Home Medications ?Medication ?Instructions ?Recorded ?Confirmed ?Last Taken ?Type benztropine 1 mg PO 2XD 06/30/24 06/30/24 Unknown History cyanocobalamin (vitamin B-12) 1,000 mcg PO 1XD 06/30/24 06/30/24 Unknown History divalproex 250 mg tablet,delayed 250 mg PO 3XD 06/30/24 06/30/24 Unknown History release famotidine 20 mg PO 1XD 06/30/24 06/30/24 Unknown History furosemide 20 mg PO 1XD 06/30/24 06/30/24 Unknown History levothyroxine 112 mcg PO DAILY@0630 06/30/24 06/30/24 Unknown History melatonin 6 mg PO BEDTIME 06/30/24 06/30/24 Unknown History quetiapine 400 mg PO BEDTIME 06/30/24 06/30/24 Unknown History risperidone 0.5 mg PO BEDTIME 06/30/24 06/30/24 Unknown History senna 17.2 mg PO 1XD 06/30/24 06/30/24 Unknown History Physical Exam 2 Vital Signs: Vital Signs: Last Vital Signs Temp 97.7 F 07/23/24 08:46 Pulse 88 07/23/24 08:46 Resp 18 07/23/24 08:46 BP 128/78 07/23/24 08:46 Pulse Ox 96 07/23/24 08:46 O2 Del Method Room Air 07/23/24 08:46 BMI result Body Mass Index 33.9 Neuro: Other: He is alert and awake with festinent somewhat stuttering speech. Facial expression blinking with diminished. Moderate generalized bradykinesia was noted with moderate cogwheeling rigidity. He could not get up on its own from a sitting position. Deep tendon reflexes were absent. He was able to [facility] Results Labs 07/08/24 07:48 07/08/24 07:48 Assessment and Plan (1) Parkinsonism: Qualifiers: Parkinsonism type: unspecified Qualified Code(s): G20.C - Parkinsonism, unspecified Status: Acute 69 years old man with underlying history of psychotic disorder and probably exposure to 1st generation antipsychotic drugs has moderate parkinsonism. My recommendation is to start him on carbidopa levodopa 2500 at 07:00, 11:00, and 15:00. Try to find out if he ever had a brain scan. If not, a noncontrast head CT or brain he is recommended. In addition, test for syphilis, Lyme, and HIV a recommended. Procedures Date of Service Date of Service: 07/23/24
[2024-07-23] MEDS: Carbidopa/Levodopa CR 25/100 TABLET.ER 1 TAB PO (12:49)
[2024-07-23] MEDS: Carbidopa/Levodopa 25/100 TABLET 1 TAB PO (17:16)
--- NOTE | 2024-07-23 18:03 | HO.PSYCHPN ---
Subjective Subjective Date of Service: 07/23/24 Reason For Visit: Schizoaffective disorder, unspecified Subjective Notes: Conditional Voluntary Interim History: Pt slept most of the night. He was seen by neurology, started on levodopa/carvidopa. He reported relief in stiffness, slightly less tremor improved mobility. He presents without psychosis or delusional content. speech with stutter, difficult to comprehend at times. No SI/HI. Review of Systems Review of Systems No history of head trauma. No recent cold or flu-like illness Yes all other systems are reviewed and are negative Mental Status Exam Mental Status Exam Narrative: Appearance: wearing hospital gown, in NAD Behavior: cooperative Psychomotor: resting bilat UE tremor, pronounced when standing up. Speech: mumbles at times, regular rate/rhythm/volume, spontaneous TP: disorganized at times TC: feeling sad because no one remembered his BD Mood: better Affect: congruent, brighter SI: denies HI: denies VH/AH: no overt signs Delusions: none Insight/judgment: fair x 2. Memory/cog: alert oriented x 3. Diagnostics Vital Signs (24Hr): Vital Signs - 24 hr 07/22/24 20:00 07/23/24 08:46 Temperature 97.4 F 97.7 F Pulse Rate 93 88 Respiratory Rate 16 18 Blood Pressure 135/90 H 128/78 Pulse Oximetry 95 96 Oxygen Delivery Method Room Air Room Air BMI result Body Mass Index 33.9 Labs 07/08/24 07:48 07/08/24 07:48 Medications Medications Current Medications Acetaminophen (Acetaminophen 325 Mg Tablet) 650 mg PO Q6H PRN PRN Reason: Headache/Pain Mild Scale (1-3) Last Admin: 07/23/24 09:52 Dose: 650 mg Al Hydroxide/Mg Hydroxide (Magnesium Hydrox/Alum Hydrox 30 Ml Oral.Susp) 30 ml PO Q6H PRN PRN Reason: Heartburn/Nausea Last Admin: 07/20/24 20:09 Dose: 30 ml Benztropine Mesylate (Benztropine Mesylate 1 Mg Tablet) 1 mg PO BID [facility] Last Admin: 07/23/24 08:43 Dose: 1 mg Carbidopa/Levodopa (Carbidopa/Levodopa 25/100 Tablet) 1 tab PO TID@0700,1100,1500 [facility] Last Admin: 07/23/24 17:16 Dose: 1 tab Cyanocobalamin (Cyanocobalamin (Vitamin B-12) 1,000 Mcg Tablet) 1,000 mcg PO DAILY [facility] Last Admin: 07/23/24 08:44 Dose: 1,000 mcg Divalproex Sodium (Divalproex Sodium 250 Mg Tablet.Dr) 250 mg PO BID@0800,1700 [facility] Last Admin: 07/23/24 17:16 Dose: 250 mg Divalproex Sodium (Divalproex Sodium 500 Mg Tablet.Dr) 500 mg PO BEDTIME [facility] Last Admin: 07/22/24 20:44 Dose: 500 mg Famotidine (Famotidine 20 Mg Tablet) 20 mg PO DAILY [facility] Last Admin: 07/22/24 08:18 Dose: 20 mg Furosemide (Furosemide 20 Mg Tablet) 20 mg PO DAILY [facility] Last Admin: 07/23/24 08:47 Dose: 20 mg Haloperidol (Haloperidol 5 Mg Tablet) 5 mg PO BID [facility] Last Admin: 07/23/24 08:44 Dose: 5 mg Levothyroxine Sodium (Levothyroxine Sodium 112 Mcg Tablet) 112 mcg PO DAILY@0600 [facility] Last Admin: 07/23/24 05:48 Dose: 112 mcg Lorazepam (Lorazepam 1 Mg Tablet) 1 mg PO Q6H PRN PRN Reason: Anxiety Last Admin: 07/23/24 09:52 Dose: 1 mg Magnesium Hydroxide (Milk Of Magnesia 30 Ml Oral.Susp) 30 ml PO DAILY PRN PRN Reason: Constipation Last Admin: 07/16/24 20:15 Dose: 30 ml Melatonin (Melatonin 3 Mg Tablet) 9 mg PO BEDTIME [facility] Last Admin: 07/22/24 20:43 Dose: 9 mg Olanzapine (Olanzapine Odt 10 Mg Tab.Rapdis) 10 mg TRANSLINGU BID PRN PRN Reason: Psychosis Ondansetron HCl (Ondansetron Odt 4 Mg Tab.Rapdis) 4 mg TRANSLINGU Q8H PRN PRN Reason: Nausea and Vomiting Last Admin: 07/15/24 04:26 Dose: 4 mg Senna (Sennosides 8.6 Mg Tablet) 17.2 mg PO DAILY [facility] Last Admin: 07/23/24 08:43 Dose: 17.2 mg Trazodone HCl (Trazodone Hcl 50 Mg Tablet) 50 mg PO BEDTIME MRX1 PRN PRN Reason: Insomnia Last Admin: 07/22/24 20:45 Dose: 50 mg Allergies Allergies Allergy/AdvReac Type Severity Reaction Status Date / Time No Known Allergies Allergy Verified 06/30/24 18:11 Assessment & Plan Assessment & Plan (1) Schizoaffective disorder: Status: Acute Code(s): F25.9 - Schizoaffective disorder, unspecified (2) Parkinsonism: Qualifiers: Parkinsonism type: unspecified Qualified Code(s): G20.C - Parkinsonism, unspecified Status: Acute Code(s): G20.C - Parkinsonism, unspecified Assessment and Plan: 69 years old man with underlying history of psychotic disorder and probably exposure to 1st generation antipsychotic drugs has moderate parkinsonism. My recommendation is to start him on carbidopa levodopa 2500 at 07:00, 11:00, and 15:00. Try to find out if he ever had a brain scan. If not, a noncontrast head CT or brain he is recommended. In addition, test for syphilis, Lyme, and HIV a recommended. Plan plan to dc tomorrow Reason for continued inpatient stay Substantial Risk for: stable for discharge Time Spent With Patient Time: Total time managing care of this patient today ____ minutes.
[2024-07-23 20:00] VITALS: BP 110/55; PULSE 86; RESP 18; TEMP 36.4; O2SAT 95
[2024-07-23] MEDS: Melatonin 3 MG TABLET 9 MG PO (20:22)
[2024-07-23] MEDS: Divalproex Sodium 500 MG TABLET.DR PO (20:22)
[2024-07-23] MEDS: traZODone HCL 50 MG TABLET PO (20:22)
[2024-07-24] MEDS: Levothyroxine Sodium 112 MCG TABLET PO (05:48)
[2024-07-24 08:00] VITALS: BP 114/91; PULSE 100; RESP 18; TEMP 37.1; O2SAT 98
--- NOTE | 2024-07-24 08:18 | PM.PSYDC ---
DS: Providers Provider Date of Service: 07/24/24 Date of admission: 06/30/24 17:50 Date of discharge: 07/24/24 Primary care physician: None Physician Consults: 06/30/24 18:24 Consult to Hospitalist Routine Comment: Consulting Provider: Hospitalist Reason For Exam: adm phy see hosp notes was on o2 confusion 07/22/24 16:23 Consult to Neurology Routine Consulting Provider: [facility] Reason for consultation: parkinsonism Has provider been notified: Yes Discharging clinician: Elda Montes DS: Diagnosis Discharge Diagnosis (1) Schizoaffective disorder: Status: Acute (2) Parkinsonism: Status: Acute DS: Medications Discharge Medications Home Medications: Previous Rx's ?Medication ?Instructions ?Recorded benztropine 1 mg tablet 1 mg PO BID #0 tabs 07/24/24 carbidopa 25 mg-levodopa 100 mg 1 tab PO TID@0700,1100,1500 #0 tabs 07/24/24 tablet cyanocobalamin (vitamin B-12) 1,000 mcg PO DAILY #0 tabs 07/24/24 1,000 mcg tablet (Vitamin B-12) divalproex 500 mg tablet,delayed 500 mg PO BID #0 tabs 07/24/24 release famotidine 20 mg tablet 20 mg PO DAILY #0 tabs 07/24/24 furosemide 20 mg tablet 20 mg PO DAILY #0 tabs 07/24/24 haloperidol 5 mg tablet 5 mg PO BID #0 tabs 07/24/24 levothyroxine 112 mcg tablet 112 mcg PO DAILY@0600 #0 tabs 07/24/24 melatonin 3 mg tablet 9 mg (3 x 3 mg) PO BEDTIME #0 tabs 07/24/24 sennosides 8.6 mg tablet (Senna 17.2 mg (2 x 8.6 mg) PO DAILY #0 07/24/24 Lax) tabs trazodone 50 mg tablet 100 mg (2 x 50 mg) PO BEDTIME PRN 07/24/24 Insomnia #0 tabs Mental Status Exam Mental Status Exam Narrative: Appearance: wearing hospital gown, in NAD Behavior: cooperative Psychomotor: resting bilat UE tremor, pronounced when standing up. Speech: stutter patter which makes enunciation difficult to understand, regular rate/volume, spontaneous TP: disorganized at times TC: feeling sad because no one remembered his BD Mood: better Affect: congruent, brighter SI: denies HI: denies VH/AH: no overt signs Delusions: none Insight/judgment: fair x 2. Memory/cog: alert oriented x 3. Data Imaging Diagnostic Imaging Impressions Head CT 07/23/24 14:24 IMPRESSION: No acute intracranial pathology. Electronically signed by: Alexis Turk MD 07/23/2024 06:10 PM EDT DS: Summary Hospital Course Hospital Course: The patient is a 68-year-old [place] male, , father of adult children, with a past history of schizoaffective disorder bipolar type who was initially brought to another hospital out of our catchment area since he was found in his apartment unable to take care of himself, extremely filthy with loud music, disheveled and disorganized. She was rushed to the emergency room and transferred to a regular unit since he was agitated and needed soft restraints. He was seen by Psychiatry over there started on Haldol and transferring to this facility after [facility] got involved and accelerate his admission. On admission the patient was pleasant, cooperative, internally preoccupied, perseverative with speech impairment but he was able to make his needs known. He reported that he is mostly him and he does not drink or smoke or use any drugs, he was withdrawn but easily redirectable. The patient was unable to provide any further information he stated that he is not hearing voices at this moment but he looked internally preoccupied. We continue with his Haldol as prescribed and will try to gather more collateral information. At the moment of the admission we were unable to get more collateral information, we do not know prior trials of medications but he was able to state that he was admitted into the hospital for psychiatric reasons before. He remains on one-to-one observation Past Psychiatric History: The patient is a very poor historian but apparently he has an extensive psychiatric history of several prior admissions into the hospital and [facility] involvement. So far we do not have guardians order or treatment over objection in the community. Medical Evaluation Reviewed: Yes HOSPITAL COURSE On the unit, pt was admitted on a CV and placed on 15 minutes checks for safety. Pt was initially assigned under the care of Dr. Edison Andrade, please refer to his notes for further detail. In brief, Pt was continued on haldol for psychosis. He presented as much brighter, without over signs of psychosis or delusional content. He denied SI/HI. He was seen on the unit, social with peers. He has severe symptoms of Parkinsonism including resting tremor, bilateral cogwheel, rigidity of upper and lower extremities affecting his ability to ambulate. Pt was seen by neurology and started on levodopa-carvidopa. He had a positive therapeutic effect in terms of reducing rigidity, making it a little bit easier to ambulate. Would recommend outpatient psychiatric provider to consider switching to less potent antipsychotic, if resonable. He was sleeping and eating well. There were no incidences of disruptive behaviors nor need for restraints. VS stable. Status at Discharge Cognitive/behavioral status at discharge: Pt with brighter, non labile affect. No overt psychosis or delusions. Sleeping and eating well. No aggression towards self or others. Functional status at discharge: uses cane/walker Overall status at discharge: patient is progressing back to baseline Time Spent with Patient Time attestation: Total time managing care of this patient today _35___ minutes. Time spent: Greater than 30 minutes Discharge Plan Discharge Anticipated Discharge Date/Time: 07/24/24 08:07 Patient Disposition: Home, Self-Care Discharge Diagnosis: Schizoaffective disorder Referrals: Physician,None [Primary Care Provider] - 1 Week Discharge Medications: New sennosides [Senna Lax] 8.6 mg Tablet 17.2 mg PO DAILY Qty: 0 0RF trazodone 50 mg Tablet 100 mg PO BEDTIME PRN (Reason: Insomnia) Qty: 0 0RF melatonin 3 mg Tablet 9 mg PO BEDTIME Qty: 0 0RF divalproex 500 mg Tablet,Delayed Release (Dr/Ec) 500 mg PO BID Qty: 0 0RF famotidine 20 mg Tablet 20 mg PO DAILY Qty: 0 0RF benztropine 1 mg Tablet 1 mg PO BID Qty: 0 0RF furosemide 20 mg Tablet 20 mg PO DAILY Qty: 0 0RF carbidopa-levodopa 25-100 mg Tablet 1 tab PO TID@0700,1100,1500 Qty: 0 0RF levothyroxine 112 mcg Tablet 112 mcg PO DAILY@0600 Qty: 0 0RF cyanocobalamin (vitamin B-12) [Vitamin B-12] 1,000 mcg Tablet 1,000 mcg PO DAILY Qty: 0 0RF haloperidol 5 mg Tablet 5 mg PO BID Qty: 0 0RF Discontinued quetiapine tablet 400 mg PO BEDTIME risperidone tablet 0.5 mg PO BEDTIME divalproex 250 mg Tablet,Delayed Release (Dr/Ec) 250 mg PO 3XD benztropine tablet 1 mg PO 2XD cyanocobalamin (vitamin B-12) tablet 1,000 mcg PO 1XD famotidine tablet 20 mg PO 1XD furosemide tablet 20 mg PO 1XD levothyroxine tablet 112 mcg PO DAILY@0630 melatonin tablet 6 mg PO BEDTIME senna tablet 17.2 mg PO 1XD Discharge Orders: Discharge Order (Routine); Ordered 07/24/24 Ordered By: Elda Montes Diet: Regular diet Activity on Discharge: Use cane or walker Stand Alone Forms: Patient Portal Discharge page Print Language: Unknown Care Plan Goals: 1. Maintain mood 2. No SI/HI 3. No aggression towards self or others 4. No overt psychosis or delusions Health Concerns: Follow up with PCP for routine care Follow up with neurology for Parkinsonism- started on levodopa/carvidopa Plan of Treatment: 1. take medications as prescribed 2. go to nearest ED or call 911 in event of emergency Assessment: Pt with brighter, non labile affect. No overt psychosis or delusions. Sleeping and eating well. No aggression towards self or others.
[2024-07-24] MEDS: HaloperidoL 5 MG TABLET PO (08:20)
[2024-07-24] MEDS: Benztropine Mesylate 1 MG TABLET PO (08:20)
[2024-07-24] MEDS: Furosemide 20 MG TABLET PO (08:20)
[2024-07-24] MEDS: Cyanocobalamin (Vitamin B-12) 1,000 MCG TABLET 1000 MCG PO (08:21)
[2024-07-24] MEDS: Carbidopa/Levodopa 25/100 TABLET 1 TAB PO (08:21)
[2024-07-24] MEDS: Famotidine 20 MG TABLET PO (08:21)
[2024-07-24] MEDS: Sennosides 8.6 MG TABLET 17.2 MG PO (08:21)
[2024-07-24] MEDS: Divalproex Sodium 250 MG TABLET.DR PO (08:21)
== END 2024-07-24 09:38 | disposition home or self-care (01) | DRG 885 ==
PROVIDERS: Admitting Provider Psychiatry & Neurology Psychiatry; Visit Provider Psychiatry & Neurology Psychiatry
DX: F25.9 Schizoaffective disorder, unspecified (principal); K21.9 Gastro-esophageal reflux disease without esophagitis; E03.9 Hypothyroidism, unspecified; G20.C Parkinsonism, unspecified; Z79.890 Hormone replacement therapy; Z79.899 Other long term (current) drug therapy
CPT/HCPCS: 36415; 70450; 80053; 80164; 85025; 93005; 97110; 97116; 97162; 97530

== ENCOUNTER 2024-06-30 17:50 | Outpatient (BNV) | payer MEDICARE, MEDICAID, SELFPAY | END 2024-07-16 10:14 | PROVIDERS: Admitting Provider Psychiatry & Neurology Psychiatry; Visit Provider Internal Medicine | DX: I45.81 Long QT syndrome (principal) | CPT/HCPCS: 93010 ==

== ENCOUNTER → 2024-06-30 17:50 | Outpatient (BNV) | payer MEDICARE, SELFPAY | PROVIDERS: Admitting Provider Psychiatry & Neurology Psychiatry; Visit Provider Psychiatry & Neurology Psychiatry | DX: F25.0 Schizoaffective disorder, bipolar type (principal) | CPT/HCPCS: 90792; 99231; 99232; 99239 ==

== ENCOUNTER → 2024-06-30 17:50 | Outpatient (BNV) | payer MEDICARE, MEDICAID, SELFPAY | PROVIDERS: Admitting Provider Psychiatry & Neurology Psychiatry; Visit Provider Student in an Organized Health Care Education/Training Program | DX: Z00.8 Encounter for other general examination (principal) | CPT/HCPCS: 99499 ==

== ENCOUNTER → 2024-06-30 17:50 | Outpatient (BNV) | payer MEDICARE, MEDICAID, SELFPAY | PROVIDERS: Admitting Provider Psychiatry & Neurology Psychiatry; Visit Provider Psychiatry & Neurology Neurology | DX: G20.C Parkinsonism, unspecified (principal) | CPT/HCPCS: 99222 ==